=== PATIENT | female | born 1965 | race Two or more races ===

== ENCOUNTER 2019-01-15 14:27 | Inpatient (IN) | payer OTHER ==
[~2019-01-15] VITALS: Ht 157.5 cm; Wt 93.0 kg
[~2019-01-15 14:27] MED LIST: ACETAMINOPHEN325 M1 ORAL; ACTOS15 MG ORAL; ALEVE220 M2 PO; AMLODIPINE BES2.5 MG ORAL; ASPIR-LOW81 MG ORAL; ATORVASTATIN CA40 MG ORAL; BAYER ADVANCED500 MG ORAL; CELEBREX100 MG ORAL; CLEOCIN150 MG ORAL; DICLOFENAC SODI75 MG ORAL; DIPHENHYDRAMINE25 M1 ORAL; DOC-Q-LACE100 M1 ORAL; FLOVENT2 PUFFS INH; GABAPENTIN100 MG ORAL; GEMFIBROZIL600 MG ORAL; GLUCOPHAGE500 MG ORAL; GLYBURIDE-METF1 EAC1 PO; IMDUR30 MG ORAL; ISOSORBIDE DINIT5 MG ORAL; JANUVIA25 MG ORAL; LISINOPRIL20 MG ORAL; LORATADINE10 M2 PO; LOSARTAN POTASS25 MG ORAL; LOSARTAN-HCTZ1 EAC1 ORAL; METOCLOPRA10 MG/10 M PO; METOPROLOL TART25 MG ORAL; METOPROLOL TART50 MG ORAL; NEURONTIN300 MG ORAL; NORCO 5-325 TA1 EACH ORAL; NORVASC10 MG ORAL; NOVOLIN R100 UNIT/1 SUBQ; PANTOPRAZOLE SO40 MG ORAL; RANEXA500 MG ORAL; TRIAMCINOLONE A15 G1 TP; XARELTO10 MG ORAL; [UNRECOGNIZED DRUG - CODE] PO
[2019-01-15 14:41] VITALS: BP 90/49
--- NOTE | 2019-01-15 14:41 | NUR ---
ED Nurse Note: Pt from home came in due to headache since this morning. Pt also c/o generalized body pain. denies injury/trauma. Denies CP states she feels dizzy. Pt is AAO x4, ambulatory with non labored breathing.
[2019-01-15] MEDS ORDERED: DiphenhydrAMINE 50mg/ml Inj IVP ONE (14:45)
--- NOTE | 2019-01-15 15:09 | Emergency Room Report ---
History of Present Illness General Chief Complaint: Pain Source: Patient Present Illness HPI Patient states that she woke up early this morning around 3 AM with all over body pain. She states she has had some diarrhea yesterday. She states that her whole body hurts. She states her body hurts from head to toe. She has a history of diabetes, hypertension, hyperlipidemia, coronary artery disease, leukemia. She is currently taking oral therapy for her leukemia. She denies fever or chills. She does have sore throat for the past couple weeks. She denies abdominal pain or chest pain. She denies shortness of breath. She denies cough. She has no other complaints. Allergies: Coded Allergies: PENICILLIN G (Unverified Allergy, Unknown, 11/08/17) PENICILLINS (Verified Allergy, Unknown, 11/08/17) Patient History Past Medical History: see triage record, DM, HTN, AK, CAD, CHF, GERD, other - Leukemia, HLP Past Surgical History: CABG Social History: Denies: smoking, alcohol use, drug use Now: No Reviewed Nursing Documentation: PMH: Agreed; PSxH: Agreed Nursing Documentation-PMH Past Medical History: No History, Except For Hx Hypertension: Yes Hx Diabetes: Yes Review of Systems All Other Systems: negative except mentioned in HPI Physical Exam Vital Signs Date Time Temp Pulse Resp B/P (MAP) Pulse Ox O2 Delivery O2 Flow Rate FiO2 01/15/19 14:31 98.8 55 20 111/59 98 Room Air Sp02 EP Interpretation: reviewed, normal General Appearance: no apparent distress, alert, GCS 15, non-toxic, obese Head: normocephalic, atraumatic Eyes: bilateral eye normal inspection, bilateral eye PERRL ENT: hearing grossly normal, normal pharynx, no angioedema, normal voice Neck: full range of motion, supple/symm/no masses Respiratory: chest non-tender, lungs clear, normal breath sounds, no respiratory distress, no retraction, no accessory muscle use, speaking full sentences Cardiovascular #1: regular rate, rhythm, no edema Gastrointestinal: normal bowel sounds, non tender, soft, non-distended, no guarding, no rebound Rectal: deferred Musculoskeletal: back normal, normal range of motion, non-tender Neurologic: alert, oriented x3, responsive, motor strength/tone normal, sensory intact, speech normal Psychiatric: judgement/insight normal, memory normal, mood/affect normal, no suicidal/homicidal ideation Skin: normal color, no rash, warm/dry, well hydrated Medical Decision Making Diagnostic Impression: Primary Impression: ARF (acute renal failure) Additional Impression: Pyelonephritis ER Course The patient is found to have acute renal failure and UTI. The patient's creatinine is 3.8 be when is 99. This is significantly changed from the patient 's baseline. I'm unsure of the etiology. Possibly this patient developed a viral syndrome and has had poor oral intake over the past week. Patient is also on many different medications and this could be a medication side effect. This patient was given IV fluids and broad-spectrum antibiotics. Regardless, the patient has new acute renal failure will be admitted for further evaluation and treatment by nephrology. Laboratory Tests Test 01/15/19 15:10 01/15/19 15:57 White Blood Count 10.9 K/UL (4.8-10.8) H Red Blood Count 4.79 M/UL (4.20-5.40) Hemoglobin 12.9 G/DL (12.0-16.0) Hematocrit 37.5 % (37.0-47.0) Mean Corpuscular Volume 78 FL (80-99) L Mean Corpuscular Hemoglobin 26.9 PG (27.0-31.0) L Mean Corpuscular Hemoglobin Concent 34.3 G/DL (32.0-36.0) Red Cell Distribution Width 12.7 % (11.6-14.8) Platelet Count 232 K/UL (150-450) Mean Platelet Volume 6.4 FL (6.5-10.1) L Neutrophils (%) (Auto) 67.0 % (45.0-75.0) Lymphocytes (%) (Auto) 21.4 % (20.0-45.0) Monocytes (%) (Auto) 6.7 % (1.0-10.0) Eosinophils (%) (Auto) 4.3 % (0.0-3.0) H Basophils (%) (Auto) 0.7 % (0.0-2.0) Prothrombin Time 12.5 SEC (9.30-11.50) H Prothrombin Time INR 1.2 (0.9-1.1) H PTT 42 SEC (23-33) H Sodium Level 137 MMOL/L (136-145) Potassium Level 3.0 MMOL/L (3.5-5.1) L Chloride Level 94 MMOL/L (98-107) L Carbon Dioxide Level 27 MMOL/L (21-32) Anion Gap 16 mmol/L (5-15) H Blood Urea Nitrogen 99 mg/dL (7-18) H Creatinine 3.8 MG/DL (0.55-1.30) H Estimate Glomerular Filtration Rate 12.4 mL/min (>60) Glucose Level 120 MG/DL (74-106) H Calcium Level 9.9 MG/DL (8.5-10.1) Total Bilirubin 0.2 MG/DL (0.2-1.0) Aspartate Amino Transferase (AST) 25 U/L (15-37) Alanine Aminotransferase (ALT) 23 U/L (12-78) Alkaline Phosphatase 86 U/L (46-116) Total Creatine Kinase 487 U/L (26-308) H Total Protein 8.9 G/DL (6.4-8.2) H Albumin 3.9 G/DL (3.4-5.0) Globulin 5.0 g/dL Albumin/Globulin Ratio 0.8 (1.0-2.7) L Triglycerides Level 242 MG/DL (30-150) H Cholesterol Level 180 MG/DL (< 200) LDL Cholesterol 91 mg/dL (<100) HDL Cholesterol 45 MG/DL (40-60) Cholesterol/HDL Ratio 4.0 (3.3-4.4) Urine Color Pending Urine Appearance Pending Urine pH Pending Urine Specific Jackson Pending Urine Protein Pending Urine Glucose (UA) Pending Urine Ketones Pending Urine Blood Pending Urine Nitrite Pending Urine Bilirubin Pending Urine Urobilinogen Pending Urine Leukocyte Esterase Pending EKG Diagnostic Results Rate: bradycardiac Rhythm: other - S.bradycardia ST Segments: no acute changes Other Impression intraventricular block Rhythm Strip Diag. Results EP Interpretation: yes Rate: 50's CT/MRI/US Diagnostic Results CT/MRI/US Diagnostic Results : Imaging Test Ordered: CT head Impression No acute findings. Specifically no intracranial bleed, mass effect or edema. See official report. Last Vital Signs Date Time Temp Pulse Resp B/P (MAP) Pulse Ox O2 Delivery O2 Flow Rate FiO2 01/15/19 14:31 98.8 55 20 111/59 98 Room Air Status: improved Disposition: XFER SHT-TRM HOSP Condition: Serious Mely Mitchell DO Jan 15, 2019 15:09
--- NOTE | 2019-01-15 15:13 | NUR ---
ED Nurse Note: Patient taken to CT.
--- NOTE | 2019-01-15 15:18 | NUR ---
ED Nurse Note: Patient is back from CT.
[2019-01-15 15:41] LABS: BASOPHILS % (AUTO) 0.7 % (0.0-2.0); EOSINOPHILS % (AUTO) 4.3 % (0.0-3.0); HEMATOCRIT 37.5 % (37.0-47.0); HEMOGLOBIN 12.9 G/DL (12.0-16.0); LYMPHOCYTES % (AUTO) 21.4 % (20.0-45.0); MEAN CORPUSCULAR VOLUME 78 FL (80-99); MONOCYTES % (AUTO) 6.7 % (1.0-10.0); PLATELET COUNT 232 K/UL (150-450); RED BLOOD COUNT 4.79 M/UL (4.20-5.40); RED CELL DISTRIBUTION WIDTH 12.7 % (11.6-14.8); WHITE BLOOD COUNT 10.9 K/UL (4.8-10.8)
--- NOTE | 2019-01-15 15:43 | Diagnostic Imaging Report ---
Indication: Headache Technique: Contiguous 5 mm thick transaxial imaging of the head obtained in a Siemens Sensation [address] scanner. Soft tissue and bone windows generated. Automatic Exposure Control was utilized. Total Dose length Product (DLP): 1319.[address] Dose Index Volume (CTDIvol): 70.38 mGy Comparison: none Findings: There is a cystic encephalomalacia involving the occipital lobes bilaterally consistent with old infarcts. There is a small cystic focus in the superior right cerebellum consistent with an old infarct measuring about 1.5 x 0.8 cm. Suggestion of one or 2 additional tiny cystic foci within the left cerebellum also noted. Mild atrophy of the brain demonstrated within the cerebrum and cerebellum. The basal cisterns are mildly prominent. There is no mass effect or edema or evidence of acute intracranial hemorrhage. Osseous structures appear normal. Paranasal sinuses and mastoid air cells appear clear. 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 Mild generalized atrophy of the brain The CT scanner at [facility] is accredited by the [employer] and the scans are performed using dose optimization techniques as appropriate to a performed exam including Automatic Exposure control.
[2019-01-15 15:54] LABS: ANION GAP 16 mmol/L (5-15); BLOOD UREA NITROGEN 99 mg/dL (7-18); CALCIUM 9.9 MG/DL (8.5-10.1); CARBON DIOXIDE 27 MMOL/L (21-32); CHLORIDE 94 MMOL/L (98-107); CREATININE 3.8 MG/DL (0.55-1.30); SODIUM 137 MMOL/L (136-145)
[2019-01-15 15:56] LABS: INR 1.2 (0.9-1.1)
[2019-01-15 15:59] LABS: ALANINE AMINOTRANSFERASE 23 U/L (12-78); ALBUMIN 3.9 G/DL (3.4-5.0); ALBUMIN/GLOBULIN RATIO 0.8 (1.0-2.7); ALKALINE PHOSPHATASE 86 U/L (46-116); ASPARTATE AMINO TRANSFERASE 25 U/L (15-37); BILIRUBIN,TOTAL 0.2 MG/DL (0.2-1.0); CHOLESTEROL 180 MG/DL (< 200); CREATINE KINASE 487 U/L (26-308); HDL CHOLESTEROL 45 MG/DL (40-60); TRIGLYCERIDES 242 MG/DL (30-150)
--- NOTE | 2019-01-15 16:04 | NUR ---
ED Nurse Note: Collected urine and sent.
[2019-01-15 16:45] VITALS: BP 101/65
--- NOTE | 2019-01-15 16:48 | NUR ---
ED Nurse Note: Medications surrendered to pharmacy. # [id number] and # [id number]
[2019-01-15 16:53] LABS: APPEARANCE,URINE CLOUDY; BILIRUBIN, URINE NEGATIVE (NEGATIVE); GLUCOSE, URINE (UA) NEGATIVE (NEGATIVE); KETONES,URINE NEGATIVE (NEGATIVE); LEUKOCYTE ESTERASE ,URINE 3+ (NEGATIVE); NITRITE,URINE NEGATIVE (NEGATIVE); PH,URINE 5 (4.5-8.0); PROTEIN,URINE 2+ (NEGATIVE); UROBILINOGEN,URINE NORMAL MG/DL (0.0-1.0)
[2019-01-15 16:54] LABS: COLOR,URINE YELLOW
[2019-01-15] MEDS ORDERED: cefTRIAXone 1 GM in NS 55 ML IVPB ONE (17:15)
[2019-01-15] MEDS ORDERED: UNOBMED (18:45)
--- NOTE | 2019-01-15 18:49 | NUR ---
ED Nurse Note: Medications taken from pharmacy and given back to patient. Pt is for transfer to [facility].
[2019-01-15 18:52] VITALS: BP 95/62
--- NOTE | 2019-01-15 19:09 | NUR ---
HAND-OFF: Report given to Charlette AMADOR.
[2019-01-15] MEDS ORDERED: Miralax 17gm pkt ORAL PRN (20:45)
[2019-01-15] MEDS ORDERED: LORazepam Inj 2mg/ml 1ml IV PRN (20:46)
[2019-01-15] MEDS ORDERED: Mylanta II UD 30ml ORAL PRN (20:48)
[2019-01-15] MEDS ORDERED: Morphine Sulfate 2mg/ml Inj(IV/IM USE ONLY) IVP PRN (20:48)
[2019-01-15] MEDS ORDERED: Zolpidem 5mg tab ORAL PRN (21:00)
--- NOTE | 2019-01-15 21:15 | NUR ---
ED Nurse Note: Patient's BP is 82/40. ERMD aware
--- NOTE | 2019-01-15 21:30 | NUR ---
ED Nurse Note: patient was admited to [facility]. BP is 82/42, HR is 52 ERMD aware. AAO x4. All belongings were given to the patient. Patient was transfered by ACLS protocol.
[2019-01-15 21:35] VITALS: BP 89/38
[2019-01-15 21:58] LABS: ALANINE AMINOTRANSFERASE 19 U/L (12-78); ALBUMIN/GLOBULIN RATIO 0.9 (1.0-2.7); ALKALINE PHOSPHATASE 64 U/L (46-116); ANION GAP 13 mmol/L (5-15); ASPARTATE AMINO TRANSFERASE 20 U/L (15-37); BILIRUBIN,TOTAL 0.1 MG/DL (0.2-1.0); BLOOD UREA NITROGEN 87 mg/dL (7-18); CALCIUM 7.8 MG/DL (8.5-10.1); CARBON DIOXIDE 25 MMOL/L (21-32); CHLORIDE 103 MMOL/L (98-107); CREATINE KINASE 437 U/L (26-308); CREATININE 2.9 MG/DL (0.55-1.30); SODIUM 141 MMOL/L (136-145)
[2019-01-15] MEDS: Heparin 5000 units/ml inj SUBQ SCH (22:00)
--- NOTE | 2019-01-15 22:00 | NUR ---
NURSE NOTES: ADMITTED 53 YEAR OLD FEMALE TO ROOM 406 BED 1 VIA GURNEY FROM EMERGENCY DEPARTMENT WITH ADMITTING DIAGNOSIS ACUTE RENAL FAILURE UNDER THE CARE OF DR. MCDONALD. PATIENT ALERT/ORIENTED X4, ABLE TO VERBALIZE NEEDS, PATIENT WITH COMPLAINTS OF GENERALIZED PAIN. NO SIGNS AND SYMPTOMS OF ACUTE CARDIO RESPIRATORY DISTRESS/SHORTNESS OF BREATH, DENIES CHEST PAIN, NO EDEMA NOTED. CONTINENT OF BOWEL/BLADDER, ABDOMEN ROUND/SOFT/NON TENDER, BOWEL SOUNDS AUDIBLE, NO REPORT OF GI DISTRESS, NO NAUSEA/VOMITING/DIARRHEA. NO REPORT OF DIFFICULTY VOIDING, BEDSIDE COMMODE AVAILABLE. SIDE RAILS UP X3/BED IN LOWEST POSITION FOR SAFETY. ORIENTATED PATIENT TO ROOM/ENVIRONMENT, ENCOURAGED PATIENT TO UTILIZE CALL LIGHT FOR ASSISTANCE, VERBALIZED UNDERSTANDING. NAD.
[2019-01-15 22:07] LABS: POTASSIUM 2.6 MMOL/L (3.5-5.1)
[2019-01-15 22:09] VITALS: BP 82/40
[2019-01-15] MEDS ORDERED: AZTREONAM IVPB SCH (23:00)
[2019-01-15] MEDS ORDERED: NS IVPB SCH (23:00)
[2019-01-15] MEDS ORDERED: SPRYCEL100 MG PO (23:13)
[2019-01-15] MEDS ORDERED: Vancomycin 1.25gm Premix IVPB ONE (23:30)
[2019-01-16] VITALS: BP 129/54
[2019-01-16 04:00] VITALS: BP 126/48
--- NOTE | 2019-01-16 06:29 | NUR ---
NURSE NOTES: RESTED WELL, NO SIGNIFICANT CHANGE OF CONDITION NOTED THROUGHOUT THE NIGHT. SAFETY MAINTAINED. NAD.
[2019-01-16 07:01] LABS: BASOPHILS % (AUTO) 0.6 % (0.0-2.0); EOSINOPHILS % (AUTO) 6.6 % (0.0-3.0); HEMATOCRIT 38.5 % (37.0-47.0); LYMPHOCYTES % (AUTO) 23.8 % (20.0-45.0); MEAN CORPUSCULAR VOLUME 80 FL (80-99); NEUTROPHILS % (AUTO) 64.1 % (45.0-75.0); PLATELET COUNT 230 K/UL (150-450); RED BLOOD COUNT 4.82 M/UL (4.20-5.40); RED CELL DISTRIBUTION WIDTH 13.4 % (11.6-14.8); WHITE BLOOD COUNT 6.9 K/UL (4.8-10.8)
--- NOTE | 2019-01-16 07:30 | NUR ---
NURSE NOTES: Report receied from Aida. Pt is resting in bed in stable condition. Pt is awake, alert, and oriented x4. able to verbalize needs. Pt is on room air and breathing is even and unlabored. No acute resp distress noted. BSC @ bedside. IV access patent and intact. Bed is in lowest position and bed alarm is activated. side rails up x3, Call light is within reach. Will continue to monitor.
[2019-01-16 07:47] LABS: ALANINE AMINOTRANSFERASE 19 U/L (12-78); ALBUMIN 3.2 G/DL (3.4-5.0); ALBUMIN/GLOBULIN RATIO 0.7 (1.0-2.7); ALKALINE PHOSPHATASE 92 U/L (46-116); ANION GAP 17 mmol/L (5-15); ASPARTATE AMINO TRANSFERASE 32 U/L (15-37); BILIRUBIN,TOTAL 0.2 MG/DL (0.2-1.0); BLOOD UREA NITROGEN 81 mg/dL (7-18); CALCIUM 8.5 MG/DL (8.5-10.1); CARBON DIOXIDE 21 MMOL/L (21-32); CHLORIDE 98 MMOL/L (98-107); CHOLESTEROL 170 MG/DL (< 200); CREATININE 2.4 MG/DL (0.55-1.30); HDL CHOLESTEROL 38 MG/DL (40-60); POTASSIUM 3.3 MMOL/L (3.5-5.1); SODIUM 136 MMOL/L (136-145); TRIGLYCERIDES 320 MG/DL (30-150)
[2019-01-16 08:00] VITALS: BP 126/63
[2019-01-16] MEDS: Heparin 5000 units/ml inj SUBQ SCH ×2 (08:28→21:33)
--- NOTE | 2019-01-16 08:48 | NUR ---
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 Mild generalized atrophy of the brain. IS:NS IV x1L COMPAZINE 10mg IVP K-DUR 10meq CEFTRIAXONE 55ml IVPB ADMITTED TO MED/SURG DC PLAN: RETURN TO HOME
[2019-01-16] MEDS: NS IVPB SCH ×2 (09:46→20:16)
[2019-01-16] MEDS: AZTREONAM IVPB SCH ×2 (09:46→20:16)
--- NOTE | 2019-01-16 10:27 | NUR ---
P.T Note: P.T evaluation completed. Pt currently is baseline independent in all aspects of ADL/functional mobilities and gait/locomotion. Skilled P.T service is not recommended at this time. Educated patient the importance of OOB activities during hospitalization to prevent occurrence of deconditioning effect from prolonged bedrest. Pt verbalized understanding. Pt D/C'd from P.T services.
[2019-01-16 11:56] VITALS: BP 120/61
--- NOTE | 2019-01-16 15:17 | Consultation ---
History of Present Illness General Date patient seen: Jan 16, 2019 Chief Complaint: Pain Reason for Consultation: inpatient management Present Illness HPI 53 year old female with hx of DM, HTN, MA, CAD, CHF, GERD, presented to ER with CC of all over body pain, some diarrhea yesterday. She is currently taking oral therapy for her leukemia. She denies fever or chills. She does have sore throat for the past couple weeks. She denies shortness of breath. She denies cough. She was found to be in renal failure and admitted for further management. Allergies: Coded Allergies: PENICILLIN G (Unverified Allergy, Unknown, 11/08/17) PENICILLINS (Verified Allergy, Unknown, 11/08/17) Medication History Scheduled Acetaminophen* (Acetaminophen 325MG Tablet*), 500 MG ORAL Q6HR, (Reported) Amlodipine Besylate (Norvasc), 10 MG ORAL DAILY Aspirin* (Aspir-Low*), 81 MG ORAL DAILY, (Reported) Atorvastatin Calcium* (Atorvastatin Calcium*), 40 MG ORAL BEDTIME, (Reported) Calcium Carbonate ([id number]), 500 MG PO DAILY, (Reported) Celecoxib* (Celebrex*), Unknown Dose ORAL TWICE A DAY, (Reported) Clindamycin HCl (Clindamycin HCl), 300 MG ORAL EVERY 6 HOURS Dasatinib (Sprycel), 100 MG PO DAILY, (Reported) Diclofenac Sod* (Voltaren*), 75 MG ORAL THREE TIMES A DAY, (Reported) Docusate Sodium (Doc-Q-Lace), 100 MG ORAL BID, (Reported) Fluticasone Propionate (Flovent Hfa), 2 PUFFS INH TWICE A DAY, (Reported) Gabapentin (Neurontin), 300 MG ORAL TID@09,15,21 Gemfibrozil (Gemfibrozil*), 600 MG ORAL BID, (Reported) Glyburide/Metformin Hcl (Glyburide-Metformin 5-500 Mg), 2 EACH PO DAILY, ( Reported) Insulin Regular, Human* (Novolin R*), Unknown Dose SUBQ .SLIDING SCALE, ( Reported) Isosorbide Mononitrate* (Imdur*), 30 MG ORAL DAILY, (Reported) Lisinopril (Lisinopril*), 20 MG ORAL DAILY, (Reported) Loratadine (Loratadine), 10 MG PO DAILY, (Reported) Losartan Potassium* (Losartan Potassium*), Unknown Dose ORAL DAILY, (Reported) Losartan/Hydrochlorothiazide (Losartan-Hctz 100-25 Mg Tab), 1 TAB ORAL DAILY, ( Reported) Metformin Hcl* (Glucophage*), Unknown Dose ORAL DAILY, (Reported) Metoclopramide Hcl* (Metoclopramide Hcl*), 10 MG PO TID, (Reported) Metoprolol Tartrate* (Metoprolol Tartrate*), 50 MG ORAL BID, (Reported) Metoprolol Tartrate* (Metoprolol Tartrate*), Unknown Dose ORAL EVERY 12 HOURS, ( Reported) Pantoprazole* (Pantoprazole*), 40 MG ORAL DAILY, (Reported) Pioglitazone Hcl* (Actos*), 15 MG ORAL DAILY, (Reported) Ranolazine* (Ranexa*), 500 MG ORAL EVERY 12 HOURS, (Reported) Rivaroxaban (Xarelto*), 20 MG ORAL DAILY, (Reported) Sitagliptin* (Januvia*), Unknown Dose ORAL DAILY, (Reported) Sitagliptin* (Januvia*), 25 MG ORAL DAILY, (Reported) Sitagliptin* (Januvia*), 25 MG ORAL DAILY, (Reported) Scheduled PRN Diphenhydramine Hcl* (Diphenhydramine Hcl*), 25 MG ORAL Q6H PRN for Itching, ( Reported) Hydrocodone Bit/Acetaminophen 5-325* (Keller 5-325*), 1 TAB ORAL Q6H PRN for For Pain Miscellaneous Medications Aspirin (Rajan Advanced), 200 MG ORAL, (Reported) Isosorbide Dinitrate (Isosorbide Dinitrate*), Unknown Dose ORAL, (Reported) Naproxen Sodium (Aleve), 220 MG PO, (Reported) Triamcinolone Acetonide (Triamcinolone Acetonide), 15 GM TP, (Reported) Unable to Obtain Medications (Unable To Obtain Meds), (Reported) Patient History Healthcare decision maker ROSEMARIE BARCLAY LETICIA GUADALUPE Resuscitation status Full Code Advanced Directive on File No Past Medical/Surgical History Past Medical/Surgical History: (1) Diabetes mellitus (2) Accelerated hypertension Review of Systems All Other Systems: negative except mentioned in HPI Physical Exam General Appearance: WD/WN, no apparent distress Lines, tubes and drains: peripheral HEENT: normocephalic, atraumatic Neck: non-tender, normal alignment Respiratory/Chest: chest wall non-tender, lungs clear Cardiovascular/Chest: normal peripheral pulses, normal rate Abdomen: normal bowel sounds, non tender, hyperactive bowel sounds Genitourinary/Rectal: normal genital exam Extremities: normal range of motion 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 Lymphatic: anterior cervical Last 24 Hour Vital Signs Date Time Temp Pulse Resp B/P (MAP) Pulse Ox O2 Delivery O2 Flow Rate FiO2 01/16/19 11:56 98.5 60 20 120/61 (80) 99 01/16/19 09:00 Room Air 01/16/19 08:00 97.7 60 20 126/63 (84) 98 01/16/19 04:00 97.7 52 17 126/48 (74) 98 01/16/19 00:00 97.3 54 18 129/54 (79) 100 01/15/19 22:09 98.7 65 20 82/40 100 Room Air 01/15/19 22:09 98.7 52 20 80/40 98 Room Air 01/15/19 22:00 Room Air 01/15/19 21:35 99.6 52 18 89/38 (55) 98 01/15/19 18:52 98.7 65 20 95/62 100 Room Air 01/15/19 16:45 98.5 60 17 101/65 100 Room Air Intake and Output 01/15/19 01/16/19 18:59 06:59 Intake Total 2055 ml 685.000 ml Balance 2055 ml 685.000 ml Intake Oral 360 ml IV Total 2055 ml 325.000 ml # Voids 1 3 # Bowel Movements 1 Laboratory Tests Test 01/15/19 15:10 01/15/19 15:57 01/15/19 21:26 01/16/19 05:46 White Blood Count 10.9 K/UL (4.8-10.8) H 6.9 K/UL (4.8-10.8) Red Blood Count 4.79 M/UL (4.20-5.40) 4.82 M/UL (4.20-5.40) Hemoglobin 12.9 G/DL (12.0-16.0) 13.0 G/DL (12.0-16.0) Hematocrit 37.5 % (37.0-47.0) 38.5 % (37.0-47.0) Mean Corpuscular Volume 78 FL (80-99) L 80 FL (80-99) Mean Corpuscular Hemoglobin 26.9 PG (27.0-31.0) L 26.9 PG (27.0-31.0) L Mean Corpuscular Hemoglobin Concent 34.3 G/DL (32.0-36.0) 33.8 G/DL (32.0-36.0) Red Cell Distribution Width 12.7 % (11.6-14.8) 13.4 % (11.6-14.8) Platelet Count 232 K/UL (150-450) 230 K/UL (150-450) Mean Platelet Volume 6.4 FL (6.5-10.1) L 6.4 FL (6.5-10.1) L Neutrophils (%) (Auto) 67.0 % (45.0-75.0) 64.1 % (45.0-75.0) Lymphocytes (%) (Auto) 21.4 % (20.0-45.0) 23.8 % (20.0-45.0) Monocytes (%) (Auto) 6.7 % (1.0-10.0) 5.0 % (1.0-10.0) Eosinophils (%) (Auto) 4.3 % (0.0-3.0) H 6.6 % (0.0-3.0) H Basophils (%) (Auto) 0.7 % (0.0-2.0) 0.6 % (0.0-2.0) Prothrombin Time 12.5 SEC (9.30-11.50) H Prothromb Time International Ratio 1.2 (0.9-1.1) H Activated Partial Thromboplast Time 42 SEC (23-33) H Sodium Level 137 MMOL/L (136-145) 141 MMOL/L (136-145) 136 MMOL/L (136-145) Potassium Level 3.0 MMOL/L (3.5-5.1) L 2.6 MMOL/L (3.5-5.1) *L 3.3 MMOL/L (3.5-5.1) L Chloride Level 94 MMOL/L (98-107) L 103 MMOL/L (98-107) 98 MMOL/L (98-107) Carbon Dioxide Level 27 MMOL/L (21-32) 25 MMOL/L (21-32) 21 MMOL/L (21-32) Anion Gap 16 mmol/L (5-15) H 13 mmol/L (5-15) 17 mmol/L (5-15) H Blood Urea Nitrogen 99 mg/dL (7-18) H 87 mg/dL (7-18) H 81 mg/dL (7-18) H Creatinine 3.8 MG/DL (0.55-1.30) H 2.9 MG/DL (0.55-1.30) H 2.4 MG/DL (0.55-1.30) H Estimat Glomerular Filtration Rate 12.4 mL/min (>60) 16.9 mL/min (>60) 21.1 mL/min (>60) Glucose Level 120 MG/DL (74-106) H 60 MG/DL (74-106) L 268 MG/DL (74-106) #H Calcium Level 9.9 MG/DL (8.5-10.1) 7.8 MG/DL (8.5-10.1) #L 8.5 MG/DL (8.5-10.1) Total Bilirubin 0.2 MG/DL (0.2-1.0) 0.1 MG/DL (0.2-1.0) L 0.2 MG/DL (0.2-1.0) Aspartate Amino Transf (AST/SGOT) 25 U/L (15-37) 20 U/L (15-37) 32 U/L (15-37) Alanine Aminotransferase (ALT/SGPT) 23 U/L (12-78) 19 U/L (12-78) 19 U/L (12-78) Alkaline Phosphatase 86 U/L (46-116) 64 U/L (46-116) 92 U/L (46-116) Total Creatine Kinase 487 U/L (26-308) H 437 U/L (26-308) H Total Protein 8.9 G/DL (6.4-8.2) H 6.4 G/DL (6.4-8.2) 7.9 G/DL (6.4-8.2) Albumin 3.9 G/DL (3.4-5.0) 3.0 G/DL (3.4-5.0) L 3.2 G/DL (3.4-5.0) L Globulin 5.0 g/dL 3.4 g/dL 4.7 g/dL Albumin/Globulin Ratio 0.8 (1.0-2.7) L 0.9 (1.0-2.7) L 0.7 (1.0-2.7) L Triglycerides Level 242 MG/DL (30-150) H 320 MG/DL (30-150) H Cholesterol Level 180 MG/DL (< 200) 170 MG/DL (< 200) LDL Cholesterol 91 mg/dL (<100) 87 mg/dL (<100) HDL Cholesterol 45 MG/DL (40-60) 38 MG/DL (40-60) L Cholesterol/HDL Ratio 4.0 (3.3-4.4) 4.5 (3.3-4.4) H Thyroid Stimulating Hormone (TSH) 2.795 uiU/mL (0.358-3.740) 4.589 uiU/mL (0.358-3.740) Free Thyroxine 0.83 NG/DL (0.76-1.46) Free Triiodothyronine 1.3 pg/mL (2.3-4.2) L Urine Color Yellow Urine Appearance Cloudy Urine pH 5 (4.5-8.0) Urine Specific Raymond 1.015 (1.005-1.035) Urine Protein 2+ (NEGATIVE) H Urine Glucose (UA) Negative (NEGATIVE) Urine Ketones Negative (NEGATIVE) Urine Blood 5+ (NEGATIVE) H Urine Nitrite Negative (NEGATIVE) Urine Bilirubin Negative (NEGATIVE) Urine Urobilinogen Normal MG/DL (0.0-1.0) Urine Leukocyte Esterase 3+ (NEGATIVE) H Urine RBC 15-20 /HPF (0 - 2) H Urine WBC Tntc /HPF (0 - 2) H Urine Squamous Epithelial Cells Moderate /LPF (NONE/OCC) H Urine Bacteria Few /HPF (NONE) Uric Acid 10.5 MG/DL (2.6-7.2) H Phosphorus Level 3.0 MG/DL (2.5-4.9) Magnesium Level 2.0 MG/DL (1.8-2.4) Hemoglobin A1c 14.2 % (4.3-6.0) H Microbiology Date/Time Source Procedure Growth Status 01/15/19 15:57 Urine,Clean Catch Urine Culture - Preliminary Gram Negative Bacillus 1 Resulted Height (Feet): 5 Height (Inches): 2.00 Weight (Pounds): 205 Medications Current Medications Medications (Trade) Dose Ordered Sig/Ruiz Route PRN Reason Start Time Stop Time Status Last Admin Dose Admin Acetaminophen (Tylenol) 650 mg Q4H PRN ORAL Mild Pain/Temp > 100.5 01/16/19 14:36 02/14/19 14:35 Aztreonam 0.5 gm/ Sodium Chloride 50 ml @ 100 mls/hr Q8H IVPB 01/16/19 10:00 01/23/19 09:59 01/16/19 09:46 Clonidine HCl (Catapres Tab) 0.1 mg Q4H PRN ORAL For High Blood Pressure >160 01/15/19 20:58 02/14/19 20:57 Dextrose (Dextrose 50%) STAT PRN IV Hypoglycemia 01/16/19 15:15 02/15/19 15:14 UNV Dextrose (Dextrose 50%) 25 ml Q30M PRN IV Hypoglycemia 01/16/19 13:45 02/15/19 13:44 Dextrose (Dextrose 50%) 50 ml Q30M PRN IV Hypoglycemia 01/16/19 13:45 02/15/19 13:44 Heparin Sodium (Porcine) (Heparin 5000 units/ml) 5,000 units EVERY 12 HOURS SUBQ 01/15/19 21:00 02/14/19 20:59 01/16/19 08:28 Insulin Aspart (NovoLOG) AC+HS SUBQ 01/16/19 16:30 02/15/19 16:29 Insulin Aspart (NovoLOG) BEFORE MEALS AND HS SUBQ 01/16/19 16:30 02/15/19 16:29 UNV Ondansetron HCl (Zofran) 4 mg Q6H PRN IVP Nausea & Vomiting 01/15/19 20:46 02/14/19 20:45 Polyethylene Glycol (Miralax) 17 gm HSPRN PRN ORAL Constipation 01/15/19 20:45 02/14/19 20:44 Vancomycin HCl (Vanco rx to dose) 1 ea DAILY PRN MISC Per rx protocol 01/15/19 20:45 02/14/19 20:44 Zolpidem Tartrate (Ambien) 5 mg HSPRN PRN ORAL Insomnia 01/15/19 21:00 01/22/19 20:59 Assessment/Plan Problem List: (1) Pyelonephritis ICD Codes: N12 - Tubulo-interstitial nephritis, not specified as acute or chronic SNOMED: 24253410 (2) ATN (acute tubular necrosis) ICD Codes: N17.0 - Acute kidney failure with tubular necrosis SNOMED: 00295411 (3) Diabetes mellitus ICD Codes: E11.9 - Type 2 diabetes mellitus without complications SNOMED: 54037001 (4) Penicillin allergy ICD Codes: Z88.0 - Allergy status to penicillin SNOMED: 47937877 Assessment/Plan iv fluids iv abx sliding scale diabetic diet renal US urine electrolytes dvt prophylaxis. Laurie Izquierdo MD Jan 16, 2019 15:17
[2019-01-16 16:00] VITALS: BP 122/64
[2019-01-16] MEDS: NovoLOG Insulin Flexpen SUBQ SCH ×2 (16:30→21:31)
[2019-01-16] MEDS ORDERED: NovoLOG Insulin Flexpen SUBQ SCH (16:30)
[2019-01-16 16:36] LABS: CREATINE KINASE 460 U/L (26-308)
--- NOTE | 2019-01-16 17:13 | NUR ---
NURSE NOTES: Kcl 40 meq given po per MD order. K+3.3 today's lab.
--- NOTE | 2019-01-16 19:05 | History & Physical ---
History and Physical History & Physicial Dictated for Int Med-Dr Woods no. [id number]. Max Vivar MD Jan 16, 2019 19:05
--- NOTE | 2019-01-16 19:07 | NUR ---
HAND-OFF: Report given to Ellen.
--- NOTE | 2019-01-16 19:30 | NUR ---
NURSE NOTES: RECEIVED PATIENT LYING IN BED, AWAKE, ALERT/ORIENTED X3, HEAD OF BED ELEVATED TO FACILITATE BREATHING , NO SIGNS AND SYMPTOMS OF ACUTE CARDIO RESPIRATORY DISTRESS/SHORTNESS OF BREATH, DENIES CHEST PAIN, BILATERAL LOWER EXTREMITIES ELEVATED ON PILLOW LENGTHWISE WITH HEELS FLOATING. NO REPORT OF GI DISCOMFORT, NO N/V/D. ASSISTED WITH COMFORT CARE. SIDE RAILS UP X3/BED IN LOWEST POSITION FOR SAFETY. ENCOURAGED PATIENT TO UTILIZE CALL LIGHT FOR ASSISTANCE, VERBALIZED UNDERSTANDING. NAD.
[2019-01-16 20:00] VITALS: BP 139/63
[2019-01-16 23:44] LABS: APPEARANCE,URINE CLEAR; BILIRUBIN, URINE NEGATIVE (NEGATIVE); COLOR,URINE PALE YELLOW; GLUCOSE, URINE (UA) 4+ (NEGATIVE); KETONES,URINE NEGATIVE (NEGATIVE); LEUKOCYTE ESTERASE ,URINE NEGATIVE (NEGATIVE); NITRITE,URINE NEGATIVE (NEGATIVE); PH,URINE 5 (4.5-8.0); PROTEIN,URINE 2+ (NEGATIVE); UROBILINOGEN,URINE NORMAL MG/DL (0.0-1.0)
[2019-01-17] VITALS: BP 127/62
--- NOTE | 2019-01-17 01:45 | History and Physical Report ---
DATE OF ADMISSION: 01/15/2019 CHIEF COMPLAINT: The patient is a 53-year-old female, who presents with chief complaint of shortness of breath. HISTORY OF PRESENT ILLNESS: Began on January 15, 2019. The patient has a history of coronary artery bypass graft. The patient states she began to experience shortness of breath. The patient also complained of generalized body aches. The patient became concerned because she has a history of coronary artery disease. The patient presented to [facility]. The patient was admitted with generalized myalgias and shortness of breath. REVIEW OF SYSTEMS: CONSTITUTIONAL: The patient denies weight loss or weight gain. The patient denies fever or chills. HEENT: The patient denies ear or throat pain. The patient denies headache. CARDIOVASCULAR: The patient denies palpitations or chest pain. CHEST: The patient complains of shortness of breath as above. The patient denies wheezes. ABDOMEN: The patient denies nausea, vomiting, diarrhea, or constipation. GENITOURINARY: The patient denies dysuria or increased frequency of urination. NEUROMUSCULAR: The patient complains of generalized myalgias as above. The patient denies seizures or generalized weakness. PAST MEDICAL HISTORY: Significant for: 1. Diabetes type 2. 2. Hypertension. 3. Chronic myelocytic leukemia. 4. History of coronary artery disease. PAST SURGICAL HISTORY: Significant for: 1. Coronary artery bypass graft in 2006. 2. section x2. CURRENT MEDICATIONS: 1. Amlodipine 10 mg p.o. daily. 2. Aspirin 81 mg p.o. daily. 3. Atorvastatin 40 mg p.o. nightly. 4. Celebrex 100 mg p.o. twice daily. 5. Sprycel 100 mg p.o. daily. 6. Flovent 110 mcg two puffs p.o. twice daily. 7. Gabapentin 300 mg p.o. three times daily. 8. Gemfibrozil 600 mg p.o. twice daily. 9. Glyburide/metformin 5/500 mg one tablet p.o. twice daily. 10. Regular insulin sliding scale. 11. Isosorbide dinitrate 5 mg p.o. daily. 12. Isosorbide mononitrate 30 mg p.o. daily. 13. Lisinopril 20 mg p.o. daily. 14. Losartan/hydrochlorothiazide 100/25 mg one tablet p.o. daily. 15. Metoprolol 50 mg p.o. twice daily. 16. Protonix 40 mg p.o. daily. 17. Actos 15 mg p.o. daily. 18. Ranexa 500 mg p.o. twice daily. 19. Xarelto 20 mg p.o. daily. 20. Januvia 25 mg p.o. daily. ALLERGIES: Penicillin. SOCIAL HISTORY: The patient is single and lives with her adult daughter. The patient denies tobacco or alcohol use. PHYSICAL EXAMINATION: VITAL SIGNS: Temperature 97.3, respirations 18, pulse 54, and blood pressure 129/54. GENERAL: The patient is a well-developed and well-nourished female, in no apparent distress. HEENT: Eyes, pupils are equal and responsive to light and accommodation. Extraocular movements are intact. NECK: Supple without lymphadenopathy. CHEST: Lungs are clear to auscultation bilaterally without wheezes or rales. CARDIOVASCULAR: Regular rhythm and rate. S1 and S2 normal without murmurs, rubs, or gallops. ABDOMEN: Soft, nontender, and nondistended. Positive bowel sounds. No evidence of hepatosplenomegaly. Currently, no rebound or guarding noted. EXTREMITIES: Negative for clubbing, cyanosis, or edema. RECTAL/GENITAL: Refused. NEUROLOGIC: Cranial nerves II through XII are grossly intact without focal deficits. Motor strength is 5/5 bilaterally. Deep tendon reflexes are 2+ plantar. LABORATORY STUDIES: WBC 10.9, hemoglobin 12.9, hematocrit 37.5, and platelets 232,000. Sodium 137, potassium 3.0, chloride 94, CO2 27, BUN 99, and creatinine 3.8. Glucose 120. CK elevated at 487. An EKG was performed, which demonstrates sinus bradycardia at approximately 55 beats per minute. There was an intraventricular block nonspecific. ASSESSMENT: This is a 53-year-old female with: 1. Shortness of breath. 2. Generalized myalgias. 3. Diabetes type 2. 4. Hypertension. 5. Coronary artery disease. 6. Chronic myelocytic leukemia. TREATMENT: 1. Shortness of breath/coronary artery disease. A Cardiology consultation has been obtained with Dr. Boo Gustafson. An echocardiogram is pending. Serial troponin levels will be performed. BNP is pending. We will follow recommendation of Cardiology. 2. Diabetes type 2. An Endocrinology consultation has been obtained with Dr. Coelho. 3. Hypertension. Continue antihypertensive medications as above. 4. Renal failure. A Nephrology consultation has been obtained with Dr. Baird. 5. Chronic myelocytic leukemia. Max Vivar M.D. DR: MELODY JOB#: [id number] CC:
[2019-01-17] MEDS: AZTREONAM IVPB SCH ×3 (02:05→19:41)
[2019-01-17] MEDS: NS IVPB SCH ×3 (02:05→19:41)
[2019-01-17 04:00] VITALS: BP 131/66
--- NOTE | 2019-01-17 06:31 | NUR ---
NURSE NOTES: RESTED WELL, NO SIGNIFICANT CHANGE OF CONDITION NOTED THROUGHOUT THE NIGHT. SAFETY MAINTAINED. NAD,.
[2019-01-17] MEDS: NovoLOG Insulin Flexpen SUBQ SCH ×4 (06:58→20:17)
--- NOTE | 2019-01-17 07:45 | NUR ---
NURSE NOTES: Report received from Aida. Pt is resting in bed and having breakfast. Pt is awake, alert, and oriented x4. able to verbalize needs. Pt is on room air and breathing is even and unlabored. No acute resp distress noted. BSC @ bedside. IV access patent and intact. Bed is in lowest position and bed alarm is activated. side rails up x3, Call light is within reach. Will continue to monitor.
[2019-01-17 08:00] VITALS: BP 155/73
[2019-01-17] MEDS: Heparin 5000 units/ml inj SUBQ SCH ×2 (08:35→20:15)
--- NOTE | 2019-01-17 08:45 | NUR ---
NURSE NOTES: home meds reconciled and brought to pharm. receipt placed in chart.
[2019-01-17 08:46] LABS: BASOPHILS % (AUTO) 0.5 % (0.0-2.0); EOSINOPHILS % (AUTO) 8.8 % (0.0-3.0); HEMATOCRIT 33.4 % (37.0-47.0); LYMPHOCYTES % (AUTO) 22.8 % (20.0-45.0); MEAN CORPUSCULAR VOLUME 80 FL (80-99); MONOCYTES % (AUTO) 7.5 % (1.0-10.0); NEUTROPHILS % (AUTO) 60.4 % (45.0-75.0); PLATELET COUNT 225 K/UL (150-450); RED BLOOD COUNT 4.15 M/UL (4.20-5.40); RED CELL DISTRIBUTION WIDTH 13.6 % (11.6-14.8)
--- NOTE | 2019-01-17 08:48 | Consultation ---
History of Present Illness General Date patient seen: Jan 17, 2019 Chief Complaint: Pain Reason for Consultation: inpatient management Present Illness HPI Ms. Stuart is a 53 yo female with PMHx of DM, HTN, CML and CAD who presented to the ED on 01/15/19 with SOB. She was worried about her SOB due to Hx of CABG but has been well on RO since admit. She also reports feeling poorly with body aches. She also had a sore throat and diarrhea yesterday. She other pearson denies Fever, Chill, N/V/D, Abdominal pain, Dysuria and urinary frequency. In the ED she was aferbile with a mild Leukocytosis. UA was positive. ID was consulted for UTI PMHX/PSHx DM HTN CML CAD S/P CABG] C-sec x 2 SocHx No E/T/D FamHx Not contributory Allergies: Coded Allergies: PENICILLIN G (Unverified Allergy, Unknown, 11/08/17) PENICILLINS (Verified Allergy, Unknown, 11/08/17) Medication History Scheduled Acetaminophen* (Acetaminophen 325MG Tablet*), 500 MG ORAL Q6HR, (Reported) Amlodipine Besylate (Norvasc), 10 MG ORAL DAILY Aspirin* (Aspir-Low*), 81 MG ORAL DAILY, (Reported) Atorvastatin Calcium* (Atorvastatin Calcium*), 40 MG ORAL BEDTIME, (Reported) Calcium Carbonate ([id number]), 500 MG PO DAILY, (Reported) Celecoxib* (Celebrex*), Unknown Dose ORAL TWICE A DAY, (Reported) Clindamycin HCl (Clindamycin HCl), 300 MG ORAL EVERY 6 HOURS Dasatinib (Sprycel), 100 MG PO DAILY, (Reported) Diclofenac Sod* (Voltaren*), 75 MG ORAL THREE TIMES A DAY, (Reported) Docusate Sodium (Doc-Q-Lace), 100 MG ORAL BID, (Reported) Fluticasone Propionate (Flovent Hfa), 2 PUFFS INH TWICE A DAY, (Reported) Gabapentin (Neurontin), 300 MG ORAL TID@09,15,21 Gemfibrozil (Gemfibrozil*), 600 MG ORAL BID, (Reported) Glyburide/Metformin Hcl (Glyburide-Metformin 5-500 Mg), 2 EACH PO DAILY, ( Reported) Insulin Regular, Human* (Novolin R*), Unknown Dose SUBQ .SLIDING SCALE, ( Reported) Isosorbide Mononitrate* (Imdur*), 30 MG ORAL DAILY, (Reported) Lisinopril (Lisinopril*), 20 MG ORAL DAILY, (Reported) Loratadine (Loratadine), 10 MG PO DAILY, (Reported) Losartan Potassium* (Losartan Potassium*), Unknown Dose ORAL DAILY, (Reported) Losartan/Hydrochlorothiazide (Losartan-Hctz 100-25 Mg Tab), 1 TAB ORAL DAILY, ( Reported) Metformin Hcl* (Glucophage*), Unknown Dose ORAL DAILY, (Reported) Metoclopramide Hcl* (Metoclopramide Hcl*), 10 MG PO TID, (Reported) Metoprolol Tartrate* (Metoprolol Tartrate*), 50 MG ORAL BID, (Reported) Metoprolol Tartrate* (Metoprolol Tartrate*), Unknown Dose ORAL EVERY 12 HOURS, ( Reported) Pantoprazole* (Pantoprazole*), 40 MG ORAL DAILY, (Reported) Pioglitazone Hcl* (Actos*), 15 MG ORAL DAILY, (Reported) Ranolazine* (Ranexa*), 500 MG ORAL EVERY 12 HOURS, (Reported) Rivaroxaban (Xarelto*), 20 MG ORAL DAILY, (Reported) Sitagliptin* (Januvia*), Unknown Dose ORAL DAILY, (Reported) Sitagliptin* (Januvia*), 25 MG ORAL DAILY, (Reported) Sitagliptin* (Januvia*), 25 MG ORAL DAILY, (Reported) Scheduled PRN Diphenhydramine Hcl* (Diphenhydramine Hcl*), 25 MG ORAL Q6H PRN for Itching, ( Reported) Hydrocodone Bit/Acetaminophen 5-325* ([place] 5-325*), 1 TAB ORAL Q6H PRN for For Pain Miscellaneous Medications Aspirin (Rajan Advanced), 200 MG ORAL, (Reported) Isosorbide Dinitrate (Isosorbide Dinitrate*), Unknown Dose ORAL, (Reported) Naproxen Sodium (Aleve), 220 MG PO, (Reported) Triamcinolone Acetonide (Triamcinolone Acetonide), 15 GM TP, (Reported) Unable to Obtain Medications (Unable To Obtain Meds), (Reported) Patient History Healthcare decision maker SELF, ROSEMARIEONEIDA JUSTIN Resuscitation status Full Code Advanced Directive on File No Review of Systems All Other Systems: negative except mentioned in HPI Physical Exam Last 24 Hour Vital Signs Date Time Temp Pulse Resp B/P (MAP) Pulse Ox O2 Delivery O2 Flow Rate FiO2 01/17/19 08:00 98.1 67 18 155/73 (100) 100 01/17/19 04:00 97.8 69 18 131/66 (87) 100 01/17/19 03:01 98.9 01/17/19 00:00 98.9 64 18 127/62 (83) 99 01/16/19 21:00 Room Air 01/16/19 20:00 99.2 68 18 139/63 (88) 98 01/16/19 16:00 98.7 68 18 122/64 (83) 98 01/16/19 11:56 98.5 60 20 120/61 (80) 99 01/16/19 09:00 Room Air Intake and Output 01/16/19 01/17/19 19:00 07:00 Intake Total 460 ml 580 ml Balance 460 ml 580 ml Intake Oral 360 ml 480 ml IV Total 100 ml 100 ml # Voids 3 3 Laboratory Tests Test 01/16/19 20:17 01/16/19 23:30 Troponin I 0.007 ng/mL (0.000-0.056) Pro-B-Type Natriuretic Peptide 626 pg/mL (0-125) H Urine Color Pale yellow Urine Appearance Clear Urine pH 5 (4.5-8.0) Urine Specific [place] 1.010 (1.005-1.035) Urine Protein 2+ (NEGATIVE) H Urine Glucose (UA) 4+ (NEGATIVE) H Urine Ketones Negative (NEGATIVE) Urine Blood Negative (NEGATIVE) Urine Nitrite Negative (NEGATIVE) Urine Bilirubin Negative (NEGATIVE) Urine Urobilinogen Normal MG/DL (0.0-1.0) Urine Leukocyte Esterase Negative (NEGATIVE) Urine RBC 0-2 /HPF (0 - 2) Urine WBC 0-2 /HPF (0 - 2) Urine Squamous Epithelial Cells Few /LPF (NONE/OCC) Urine Bacteria Few /HPF (NONE) Urine Eosinophils None seen (NONE SEEN) Urine Random Creatinine Pending Urine Random Microalbumin Pending Urine Random Sodium 25 mmol/L (20-110) Urine Creatinine 59.9 MG/DL (30.0-125.0) Urine Microalbumin/Creatinine Ratio Pending Urine Potassium Timed 43 mmol/L (12-62) Height (Feet): 5 Height (Inches): 2.00 Weight (Pounds): 205 Medications Current Medications Medications (Trade) Dose Ordered Sig/Ruiz Route PRN Reason Start Time Stop Time Status Last Admin Dose Admin Acetaminophen (Tylenol) 650 mg Q4H PRN ORAL Mild Pain/Temp > 100.5 01/16/19 14:36 02/14/19 14:35 01/17/19 02:31 Aztreonam 0.5 gm/ Sodium Chloride 50 ml @ 100 mls/hr Q8H IVPB 01/16/19 10:00 01/23/19 09:59 01/17/19 02:05 Clonidine HCl (Catapres Tab) 0.1 mg Q4H PRN ORAL For High Blood Pressure >160 01/15/19 20:58 02/14/19 20:57 Dextrose (Dextrose 50%) 25 ml Q30M PRN IV Hypoglycemia 01/16/19 13:45 02/15/19 13:44 Dextrose (Dextrose 50%) 50 ml Q30M PRN IV Hypoglycemia 01/16/19 13:45 02/15/19 13:44 Heparin Sodium (Porcine) (Heparin 5000 units/ml) 5,000 units EVERY 12 HOURS SUBQ 01/15/19 21:00 02/14/19 20:59 01/16/19 21:33 Insulin Aspart (NovoLOG) BEFORE MEALS AND HS SUBQ 01/16/19 16:30 02/15/19 16:29 01/17/19 06:58 Ondansetron HCl (Zofran) 4 mg Q6H PRN IVP Nausea & Vomiting 01/15/19 20:46 02/14/19 20:45 Polyethylene Glycol (Miralax) 17 gm HSPRN PRN ORAL Constipation 01/15/19 20:45 02/14/19 20:44 Vancomycin HCl (Vanco rx to dose) 1 ea DAILY PRN MISC Per rx protocol 01/15/19 20:45 02/14/19 20:44 Zolpidem Tartrate (Ambien) 5 mg HSPRN PRN ORAL Insomnia 01/15/19 21:00 01/22/19 20:59 Objective Narrative Gen: NAD, well appearing, alert HEENT: NCAT, MMM, EOMI, PERRL, No Oral lesion, no scleral icterus NECK: full range of motion, supple, no meningismus, No LAD, No JVD LUNGS: CTAB, No W/C, No Accessory muscle use CARDS: RRR, S1, S2, No M/R/G, ABD: Soft, NT, ND, No R/G, + BS, No HSM, No Masses : Deferred Ext: C/C/E, Pulses 2+ B/L (DP, Rad): NEURO: A/O x 4, Strength and Sensation Grossly intact PSYCH: Mood/affect normal SKIN: Warm/dry, No rashes Assessment/Plan Assessment/Plan 53 yo female with PMHx of DM, HTN, CML and CAD who presented to the ED on with SOB. UTI Positive UA Body aches and mild leukocytosis Urine Cx growing GNR SOB Resolved Patient on RA No Diarrhea Afebrile DM HTN CML CAD S/P CABG] PLAN - Continue Aztreonam #1/ Will adjust ameya on UCx results - Hopefully we can find a PO option. 01/17/19 S/P Vancomcyin #1 - f/u Urine Cx - Monitor CBC and Temps Thank you for this consult. We will continue to follow the patient with you. Dirk Dalton MD Jan 17, 2019 08:48
[2019-01-17 09:20] LABS: PHOSPHORUS 1.7 MG/DL (2.5-4.9)
[2019-01-17 09:46] LABS: ALANINE AMINOTRANSFERASE 22 U/L (12-78); ALBUMIN 3.4 G/DL (3.4-5.0); ALBUMIN/GLOBULIN RATIO 0.8 (1.0-2.7); ALKALINE PHOSPHATASE 83 U/L (46-116); ANION GAP 12 mmol/L (5-15); ASPARTATE AMINO TRANSFERASE 24 U/L (15-37); BILIRUBIN,TOTAL 0.2 MG/DL (0.2-1.0); BLOOD UREA NITROGEN 37 mg/dL (7-18); CALCIUM 8.9 MG/DL (8.5-10.1); CARBON DIOXIDE 26 MMOL/L (21-32); CHLORIDE 102 MMOL/L (98-107); CREATININE 1.3 MG/DL (0.55-1.30); POTASSIUM 3.2 MMOL/L (3.5-5.1); SODIUM 140 MMOL/L (136-145)
--- NOTE | 2019-01-17 10:27 | NUR ---
NURSE NOTES: Dr Dalton made aware of the ESBL + urine. No new order obtained. patient transferred to room 420-1. will cont to monitor.
[2019-01-17] MEDS ORDERED: Vancomycin 1.5gm Premix 275 ML IVPB ONE (11:00)
--- NOTE | 2019-01-17 11:39 | NUR ---
CASE MANAGEMENT: REVIEW SI: SOB / CORONARY ARTERY DISEASE . UTI T 98.1 HR 67 RR 18 BP 155/73 SAT 99% ROOM AIR WBC 4.0 K 3.2 IS: AZACTAM IV Q8HR CLONIDINE PO Q4HR PRN MED/SURG STATUS DCP: PATIENT IS FROM HOME PLAN: 2D ECHO
[2019-01-17 12:09] VITALS: BP 140/68
--- NOTE | 2019-01-17 12:27 | Consultation ---
Consult Note Consult Note asked to eval at the request of Dr Izquierdo for renal failure Patient states that she woke up early this morning around 3 AM with all over body pain. She states she has had some diarrhea yesterday. She states that her whole body hurts. She states her body hurts from head to toe. She has a history of diabetes, hypertension, hyperlipidemia, coronary artery disease, leukemia. She is currently taking oral therapy for her leukemia. She denies fever or chills. She does have sore throat for the past couple weeks. She denies abdominal pain or chest pain. She denies shortness of breath. She denies cough. She has no other complaints. Allergies: PENICILLIN G (Unverified Allergy, Unknown, 11/08/17) PENICILLINS (Verified Allergy, Unknown, 11/08/17) Past Medical History: see triage record, DM, HTN, [place], CAD, CHF, GERD, other - Leukemia, HLP Past Surgical History: CABG Social History: Denies: smoking, alcohol use, drug use Past Medical History: No History, Except For Hx Hypertension: Yes Hx Diabetes: Yes interviewed examined data reviewed . Assessment/Plan 1) Pyelonephritis (2) ATN (acute tubular necrosis), and severe dehydration ( home meds : Metformin , Volteran, George Inhibitors.... (3) Diabetes mellitus long history of IDDM (4) Penicillin allergy (5) CAD (6) HLP stop hydrate K and Phos supplement adjust BS and BP per orders Robert Baird MD Jan 17, 2019 12:27
[2019-01-17] MEDS ORDERED: GEMFIBROZIL600 MG ORAL (13:39)
[2019-01-17] MEDS ORDERED: ZESTRIL2.5 MG ORAL (13:39)
[2019-01-17] MEDS ORDERED: STARLIX120 MG ORAL (13:39)
[2019-01-17] MEDS ORDERED: BACTRIM DS TAB1 EAC1 ORAL (13:40)
--- NOTE | 2019-01-17 13:46 | Pulmonology Progress Note ---
Assessment/Plan Problems: (1) Pyelonephritis (2) ATN (acute tubular necrosis) (3) Diabetes mellitus (4) Penicillin allergy Assessment/Plan K and phos supplement continue abx bun/creatinine decreasing dc home in am Subjective ROS Limited/Unobtainable: No Constitutional: Reports: no symptoms HEENT: Repors: no symptoms Allergies: Coded Allergies: PENICILLIN G (Unverified Allergy, Unknown, 11/08/17) PENICILLINS (Verified Allergy, Unknown, 11/08/17) Objective Last 24 Hour Vital Signs Date Time Temp Pulse Resp B/P (MAP) Pulse Ox O2 Delivery O2 Flow Rate FiO2 01/17/19 12:09 99.1 67 17 140/68 (92) 98 01/17/19 09:00 Room Air 01/17/19 08:00 98.1 67 18 155/73 (100) 100 01/17/19 04:00 97.8 69 18 131/66 (87) 100 01/17/19 03:01 98.9 01/17/19 00:00 98.9 64 18 127/62 (83) 99 01/16/19 21:00 Room Air 01/16/19 20:00 99.2 68 18 139/63 (88) 98 01/16/19 16:00 98.7 68 18 122/64 (83) 98 Intake and Output 01/16/19 01/17/19 19:00 07:00 Intake Total 460 ml 580 ml Balance 460 ml 580 ml Intake Oral 360 ml 480 ml IV Total 100 ml 100 ml # Voids 3 3 Objective General Appearance: WD/WN, no apparent distress Lines, tubes and drains: peripheral HEENT: normocephalic, atraumatic Neck: non-tender, normal alignment Respiratory/Chest: chest wall non-tender, lungs clear Cardiovascular/Chest: normal peripheral pulses, normal rate Abdomen: normal bowel sounds, non tender, hyperactive bowel sounds Genitourinary/Rectal: normal genital exam Extremities: normal range of motion 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 Lymphatic: anterior cervical Microbiology Date/Time Source Procedure Growth Status 01/15/19 15:57 Urine,Clean Catch Urine Culture - Final Escherichia Coli - Esbl Complete Laboratory Tests 01/16/19 20:17: Troponin I 0.007, Pro-B-Type Natriuretic Peptide 626H 01/16/19 23:30: Urine Color Pale yellow, Urine Appearance Clear, Urine pH 5, Urine Specific [place] 1.010, Urine Protein 2+H, Urine Glucose (UA) 4+H, Urine Ketones Negative , Urine Blood Negative, Urine Nitrite Negative, Urine Bilirubin Negative, Urine Urobilinogen Normal, Urine Leukocyte Esterase Negative, Urine RBC 0-2, Urine WBC 0-2, Urine Squamous Epithelial Cells Few, Urine Bacteria Few, Urine Eosinophils None seen, Urine Random Creatinine [Pending], Urine Random Microalbumin [Pending], Urine Random Sodium 25, Urine Creatinine 59.9, Urine Microalbumin/Creatinine Ratio [Pending], Urine Potassium Timed 43 01/17/19 06:40: Troponin I 0.008, White Blood Count 4.0L, Red Blood Count 4.15L, Hemoglobin 11.0L, Hematocrit 33.4L, Mean Corpuscular Volume 80, Mean Corpuscular Hemoglobin 26.6L, Mean Corpuscular Hemoglobin Concent 33.1, Red Cell Distribution Width 13.6, Platelet Count 225, Mean Platelet Volume 7.0, Neutrophils (%) (Auto) 60.4, Lymphocytes (%) (Auto) 22.8, Monocytes (%) (Auto) 7.5, Eosinophils (%) (Auto) 8.8H, Basophils (%) (Auto) 0.5, Erythrocyte Sedimentation Rate 96H, Sodium Level 140, Potassium Level 3.2L, Chloride Level 102, Carbon Dioxide Level 26, Anion Gap 12, Blood Urea Nitrogen 37H, Creatinine 1.3, Estimat Glomerular Filtration Rate 42.7, Glucose Level 224H, Calcium Level 8.9, Phosphorus Level 1.7L, Magnesium Level 1.8, Total Bilirubin 0.2, Aspartate Amino Transf (AST/SGOT) 24, Alanine Aminotransferase (ALT/SGPT) 22, Alkaline Phosphatase 83, C-Reactive Protein, Quantitative 1.3H, Total Protein 7.8, Albumin 3.4, Globulin 4.4, Albumin/Globulin Ratio 0.8L, Random Vancomycin Level 7.6 Current Medications Medications (Trade) Dose Ordered Sig/Ruiz Route PRN Reason Start Time Stop Time Status Last Admin Dose Admin Acetaminophen (Tylenol) 650 mg Q4H PRN ORAL Mild Pain/Temp > 100.5 01/16/19 14:36 02/14/19 14:35 01/17/19 02:31 Aspirin (Ecotrin) 81 mg DAILY ORAL 01/18/19 09:00 02/17/19 08:59 Aztreonam 0.5 gm/ Sodium Chloride 50 ml @ 100 mls/hr Q8H IVPB 01/16/19 10:00 01/23/19 09:59 01/17/19 09:32 Clonidine HCl (Catapres Tab) 0.1 mg Q4H PRN ORAL For High Blood Pressure >160 01/15/19 20:58 02/14/19 20:57 Dextrose (Dextrose 50%) 25 ml Q30M PRN IV Hypoglycemia 01/16/19 13:45 02/15/19 13:44 Dextrose (Dextrose 50%) 50 ml Q30M PRN IV Hypoglycemia 01/16/19 13:45 02/15/19 13:44 Docusate Sodium (Colace) 100 mg BID ORAL 01/17/19 18:00 02/16/19 17:59 Gemfibrozil (Lopid) 600 mg BID ORAL 01/17/19 18:00 02/16/19 17:59 Heparin Sodium (Porcine) (Heparin 5000 units/ml) 5,000 units EVERY 12 HOURS SUBQ 01/15/19 21:00 02/14/19 20:59 01/16/19 21:33 Insulin Aspart (NovoLOG) BEFORE MEALS AND HS SUBQ 01/16/19 16:30 02/15/19 16:29 01/17/19 12:18 Isosorbide Mononitrate (Imdur) 30 mg DAILY ORAL 01/18/19 09:00 02/17/19 08:59 Lisinopril (Zestril) 2.5 mg DAILY ORAL 01/18/19 09:00 02/17/19 08:59 Lisinopril (Zestril) 2.5 mg ONCE ORAL 01/17/19 14:00 01/17/19 15:00 Nateglinide (Starlix) 120 mg TIAC ORAL 01/17/19 16:30 02/16/19 16:29 Ondansetron HCl (Zofran) 4 mg Q6H PRN IVP Nausea & Vomiting 01/15/19 20:46 02/14/19 20:45 Pantoprazole (Protonix) 40 mg EVERY 12 HOURS ORAL 01/17/19 21:00 02/16/19 20:59 Polyethylene Glycol (Miralax) 17 gm HSPRN PRN ORAL Constipation 01/15/19 20:45 02/14/19 20:44 Potassium Phosphate 30 mm/ Sodium Chloride 285 ml @ 47.5 mls/hr ONCE ONCE IV 01/17/19 14:30 01/17/19 20:29 Zolpidem Tartrate (Ambien) 5 mg HSPRN PRN ORAL Insomnia 01/15/19 21:00 01/22/19 20:59 Laurie Izquierdo MD Jan 17, 2019 13:46
[2019-01-17] MEDS ORDERED: Lisinopril 2.5mg tab ORAL SCH (14:00)
[2019-01-17] MEDS ORDERED: Potassium Phosphate 30 MM in NS 275 ML IV ONE (14:30)
[2019-01-17 16:00] VITALS: BP 137/83
--- NOTE | 2019-01-17 16:27 | Internal Med Progress Note ---
Subjective Date of Service: Jan 17, 2019 Physician Name Max Vivar Attending Physician Ovidio Woods MD Current Medications Medications (Trade) Dose Ordered Sig/Ruiz Route PRN Reason Start Time Stop Time Status Last Admin Dose Admin Acetaminophen (Tylenol) 650 mg Q4H PRN ORAL Mild Pain/Temp > 100.5 01/16/19 14:36 02/14/19 14:35 01/17/19 02:31 Aspirin (Ecotrin) 81 mg DAILY ORAL 01/18/19 09:00 02/17/19 08:59 Aztreonam 0.5 gm/ Sodium Chloride 50 ml @ 100 mls/hr Q8H IVPB 01/16/19 10:00 01/23/19 09:59 01/17/19 09:32 Clonidine HCl (Catapres Tab) 0.1 mg Q4H PRN ORAL For High Blood Pressure >160 01/15/19 20:58 02/14/19 20:57 Dextrose (Dextrose 50%) 25 ml Q30M PRN IV Hypoglycemia 01/16/19 13:45 02/15/19 13:44 Dextrose (Dextrose 50%) 50 ml Q30M PRN IV Hypoglycemia 01/16/19 13:45 02/15/19 13:44 Docusate Sodium (Colace) 100 mg BID ORAL 01/17/19 18:00 02/16/19 17:59 Gemfibrozil (Lopid) 600 mg BID ORAL 01/17/19 18:00 02/16/19 17:59 Heparin Sodium (Porcine) (Heparin 5000 units/ml) 5,000 units EVERY 12 HOURS SUBQ 01/15/19 21:00 02/14/19 20:59 01/16/19 21:33 Insulin Aspart (NovoLOG) BEFORE MEALS AND HS SUBQ 01/16/19 16:30 02/15/19 16:29 01/17/19 12:18 Isosorbide Mononitrate (Imdur) 30 mg DAILY ORAL 01/18/19 09:00 02/17/19 08:59 Lisinopril (Zestril) 2.5 mg DAILY ORAL 01/18/19 09:00 02/17/19 08:59 Nateglinide (Starlix) 120 mg TIAC ORAL 01/17/19 16:30 02/16/19 16:29 Ondansetron HCl (Zofran) 4 mg Q6H PRN IVP Nausea & Vomiting 01/15/19 20:46 02/14/19 20:45 Pantoprazole (Protonix) 40 mg EVERY 12 HOURS ORAL 01/17/19 21:00 02/16/19 20:59 Polyethylene Glycol (Miralax) 17 gm HSPRN PRN ORAL Constipation 01/15/19 20:45 02/14/19 20:44 Potassium Phosphate 30 mm/ Sodium Chloride 285 ml @ 47.5 mls/hr ONCE ONCE IV 01/17/19 14:30 01/17/19 20:29 01/17/19 14:35 Sitagliptin Phosphate (Januvia) 25 mg DAILY ORAL 01/17/19 15:00 02/16/19 14:59 Zolpidem Tartrate (Ambien) 5 mg HSPRN PRN ORAL Insomnia 01/15/19 21:00 01/22/19 20:59 Allergies: Coded Allergies: PENICILLIN G (Unverified Allergy, Unknown, 11/08/17) PENICILLINS (Verified Allergy, Unknown, 11/08/17) ROS Limited/Unobtainable: No Constitutional: Reports: no symptoms HEENT: Reports: no symptoms Cardiovascular: Reports: no symptoms Respiratory: Reports: shortness of breath Gastrointestinal/Abdominal: Reports: no symptoms Neurologic/Psychiatric: Reports: no symptoms Subjective 53 YO F admitted with shortness of breath. Now julián heart failure. Cover for Int margarita-Dr Woods Objective Last Vital Signs Date Time Temp Pulse Resp B/P (MAP) Pulse Ox O2 Delivery O2 Flow Rate FiO2 01/17/19 14:34 140/68 01/17/19 12:09 99.1 67 17 98 01/17/19 09:00 Room Air Laboratory Tests Test 01/16/19 20:17 01/16/19 23:30 01/17/19 06:40 Troponin I 0.007 ng/mL (0.000-0.056) 0.008 ng/mL (0.000-0.056) Pro-B-Type Natriuretic Peptide 626 pg/mL (0-125) H Urine Color Pale yellow Urine Appearance Clear Urine pH 5 (4.5-8.0) Urine Specific [place] 1.010 (1.005-1.035) Urine Protein 2+ (NEGATIVE) H Urine Glucose (UA) 4+ (NEGATIVE) H Urine Ketones Negative (NEGATIVE) Urine Blood Negative (NEGATIVE) Urine Nitrite Negative (NEGATIVE) Urine Bilirubin Negative (NEGATIVE) Urine Urobilinogen Normal MG/DL (0.0-1.0) Urine Leukocyte Esterase Negative (NEGATIVE) Urine RBC 0-2 /HPF (0 - 2) Urine WBC 0-2 /HPF (0 - 2) Urine Squamous Epithelial Cells Few /LPF (NONE/OCC) Urine Bacteria Few /HPF (NONE) Urine Eosinophils None seen (NONE SEEN) Urine Random Creatinine Pending Urine Random Microalbumin Pending Urine Random Sodium 25 mmol/L (20-110) Urine Creatinine 59.9 MG/DL (30.0-125.0) Urine Microalbumin/Creatinine Ratio Pending Urine Potassium Timed 43 mmol/L (12-62) White Blood Count 4.0 K/UL (4.8-10.8) L Red Blood Count 4.15 M/UL (4.20-5.40) L Hemoglobin 11.0 G/DL (12.0-16.0) L Hematocrit 33.4 % (37.0-47.0) L Mean Corpuscular Volume 80 FL (80-99) Mean Corpuscular Hemoglobin 26.6 PG (27.0-31.0) L Mean Corpuscular Hemoglobin Concent 33.1 G/DL (32.0-36.0) Red Cell Distribution Width 13.6 % (11.6-14.8) Platelet Count 225 K/UL (150-450) Mean Platelet Volume 7.0 FL (6.5-10.1) Neutrophils (%) (Auto) 60.4 % (45.0-75.0) Lymphocytes (%) (Auto) 22.8 % (20.0-45.0) Monocytes (%) (Auto) 7.5 % (1.0-10.0) Eosinophils (%) (Auto) 8.8 % (0.0-3.0) H Basophils (%) (Auto) 0.5 % (0.0-2.0) Erythrocyte Sedimentation Rate 96 MM/HR (0-30) H Sodium Level 140 MMOL/L (136-145) Potassium Level 3.2 MMOL/L (3.5-5.1) L Chloride Level 102 MMOL/L (98-107) Carbon Dioxide Level 26 MMOL/L (21-32) Anion Gap 12 mmol/L (5-15) Blood Urea Nitrogen 37 mg/dL (7-18) H Creatinine 1.3 MG/DL (0.55-1.30) Estimat Glomerular Filtration Rate 42.7 mL/min (>60) Glucose Level 224 MG/DL (74-106) H Calcium Level 8.9 MG/DL (8.5-10.1) Phosphorus Level 1.7 MG/DL (2.5-4.9) L Magnesium Level 1.8 MG/DL (1.8-2.4) Total Bilirubin 0.2 MG/DL (0.2-1.0) Aspartate Amino Transf (AST/SGOT) 24 U/L (15-37) Alanine Aminotransferase (ALT/SGPT) 22 U/L (12-78) Alkaline Phosphatase 83 U/L (46-116) C-Reactive Protein, Quantitative 1.3 mg/dL (0.00-0.90) H Total Protein 7.8 G/DL (6.4-8.2) Albumin 3.4 G/DL (3.4-5.0) Globulin 4.4 g/dL Albumin/Globulin Ratio 0.8 (1.0-2.7) L Random Vancomycin Level 7.6 ug/mL Microbiology Date/Time Source Procedure Growth Status 01/15/19 15:57 Urine,Clean Catch Urine Culture - Final Escherichia Coli - Esbl Complete Intake and Output 01/16/19 01/17/19 18:59 06:59 Intake Total 460 ml 580 ml Balance 460 ml 580 ml Intake Oral 360 ml 480 ml IV Total 100 ml 100 ml # Voids 3 3 Objective PHYSICAL EXAMINATION: GENERAL: The patient is a well-developed and well-nourished female, in no apparent distress. HEENT: Eyes, pupils are equal and responsive to light and accommodation. Extraocular movements are intact. NECK: Supple without lymphadenopathy. CHEST: Lungs are clear to auscultation bilaterally without wheezes or rales. CARDIOVASCULAR: Regular rhythm and rate. S1 and S2 normal without murmurs, rubs, or gallops. ABDOMEN: Soft, nontender, and nondistended. Positive bowel sounds. No evidence of hepatosplenomegaly. Currently, no rebound or guarding noted. EXTREMITIES: Negative for clubbing, cyanosis, or edema. RECTAL/GENITAL: Refused. NEUROLOGIC: Cranial nerves II through XII are grossly intact without focal deficits. Motor strength is 5/5 bilaterally. Deep tendon reflexes are 2+ plantar. Assessment/Plan Assessment/Plan ASSESSMENT: This is a 53-year-old female with: 1. Shortness of breath. 2. Generalized myalgias. 3. Diabetes type 2. 4. Hypertension. 5. Coronary artery disease. 6. Chronic myelocytic leukemia. TREATMENT: 1. Shortness of breath/coronary artery disease. A Cardiology consultation has been obtained with Dr. Boo Gustafson. An echocardiogram is pending. Serial troponin levels will be performed. BNP is pending. We will follow recommendation of Cardiology. 2. Diabetes type 2. An Endocrinology consultation has been obtained with Dr. Coelho. 3. Hypertension. Continue antihypertensive medications as above. 4. Renal failure. A Nephrology consultation has been obtained with Dr. Baird. 5. Chronic myelocytic leukemia. Max Vivar MD Jan 17, 2019 16:27
[2019-01-17] MEDS: Docusate 100mg cap ORAL SCH (17:06)
[2019-01-17] MEDS: sitaGLIPtin 25mg tab ORAL SCH (17:06)
--- NOTE | 2019-01-17 19:12 | NUR ---
HAND-OFF: Report given to Dru.
--- NOTE | 2019-01-17 19:41 | NUR ---
NURSE NOTES: Received report from MARJORIE Connelly. Pt received awake alert, bed in lowest position, call light within reach, able to make needs known, IV in place, no signs of distress or c/o pain, will continue to monitor.
[2019-01-17 20:00] VITALS: BP 122/83
--- NOTE | 2019-01-17 23:15 | Consultation ---
DATE OF CONSULTATION: 01/17/2019 CARDIOLOGY CONSULTATION CONSULTING PHYSICIAN: Boo Gustafson M.D. REFERRING PHYSICIAN: Ovidio Woods M.D. REASON FOR CONSULTATION: Management of hypertension and coronary artery disease. HISTORY OF PRESENT ILLNESS: The patient is a 53-year-old lady with history of hypertension, diabetes, and coronary artery disease, history of coronary artery bypass graft at [facility] in 2006. 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 The patient came to the emergency room complaining of increasing body ache and shortness of breath. Her EKG shows sinus bradycardia, rate of 56, nonspecific intraventricular conduction delay, and old anterior wall DE. The patient was admitted and Cardiology consultation was obtained for further evaluation and management. REVIEW OF SYSTEMS: Negative other than what is mentioned in the history of present illness. PAST MEDICAL HISTORY: 1. Hypertension. 2. Diabetes. 3. Chronic kidney disease. 4. CML. MEDICATIONS: Per reconciliation. PAST SURGICAL HISTORY: Include and coronary bypass graft in 2006. ALLERGIES: She is allergic to penicillin. PHYSICAL EXAMINATION: VITAL SIGNS: Blood pressure is 140/68, pulse 67, respirations 18, she is afebrile. HEAD AND NECK: Showed no JVD or carotid bruit. LUNGS: Clear. CARDIOVASCULAR: Shows regular S1 and S2 with no gallop. Sternotomy scar is intact. ABDOMEN: Soft. EXTREMITIES: No pitting edema. Scar of vein harvesting on her left leg is evident. LABORATORY DATA: Labs show white count of 4, hemoglobin of 11, hematocrit 33.4, and platelet count is 225,000. Sodium 140, potassium 3.2, BUN of 37, creatinine 1.3. Troponin is negative. ASSESSMENT AND PLAN: 1. Shortness of breath. The patient will be ruled out for myocardial infarction by serial cardiac enzymes and currently does not have any chest pain. Continue aspirin and Imdur 30 mg daily as well as Lopid. Keep the patient off beta-abner in view of bradycardia. 2. Hypertension on lisinopril 2.5 mg daily and Imdur. 3. Hyperlipidemia, on Lopid. 4. Diabetes, on Januvia. We will also get an echocardiogram for further evaluation and management. 5. History of leukemia. Thank you very much for allowing me to participate in the care of this patient. Please do not hesitate to contact me if you have any questions regarding my evaluation. Sincerely, Boo Gustafson M.D. DR: MARIMAR JOB#: [id number] CC:
[2019-01-18] VITALS: BP 92/54
[2019-01-18] MEDS: NS IVPB SCH ×2 (03:12→11:00)
[2019-01-18] MEDS: AZTREONAM IVPB SCH ×2 (03:12→11:00)
[2019-01-18 04:00] VITALS: BP 114/70
[2019-01-18 05:57] LABS: EOSINOPHILS % (AUTO) 8.7 % (0.0-3.0); HEMOGLOBIN 11.2 G/DL (12.0-16.0); MEAN CORPUSCULAR VOLUME 79 FL (80-99); MONOCYTES % (AUTO) 9.9 % (1.0-10.0); NEUTROPHILS % (AUTO) 54.6 % (45.0-75.0); PLATELET COUNT 211 K/UL (150-450); RED BLOOD COUNT 4.16 M/UL (4.20-5.40); RED CELL DISTRIBUTION WIDTH 13.3 % (11.6-14.8); WHITE BLOOD COUNT 3.8 K/UL (4.8-10.8)
[2019-01-18] MEDS: NovoLOG Insulin Flexpen SUBQ SCH (06:00)
[2019-01-18 06:32] LABS: % IRON SATURATION 22 % (15-50); IRON 70 ug/dL (50-175); TOTAL IRON BINDING CAPACITY 317 ug/dL (250-450)
[2019-01-18 06:33] LABS: ALANINE AMINOTRANSFERASE 30 U/L (12-78); ALBUMIN 3.5 G/DL (3.4-5.0); ALBUMIN/GLOBULIN RATIO 0.8 (1.0-2.7); ALKALINE PHOSPHATASE 77 U/L (46-116); ANION GAP 13 mmol/L (5-15); ASPARTATE AMINO TRANSFERASE 30 U/L (15-37); BILIRUBIN,TOTAL 0.3 MG/DL (0.2-1.0); BLOOD UREA NITROGEN 26 mg/dL (7-18); CALCIUM 8.9 MG/DL (8.5-10.1); CARBON DIOXIDE 27 MMOL/L (21-32); CHLORIDE 102 MMOL/L (98-107); CREATININE 1.1 MG/DL (0.55-1.30); POTASSIUM 3.5 MMOL/L (3.5-5.1); SODIUM 142 MMOL/L (136-145)
[2019-01-18 06:48] LABS: PHOSPHORUS 2.8 MG/DL (2.5-4.9)
--- NOTE | 2019-01-18 07:14 | NUR ---
HAND-OFF: Report given to AJ Alonso.
--- NOTE | 2019-01-18 07:30 | NUR ---
NURSE NOTES: Report received from [facility]. Pt is calm and comfortable in bed and having breakfast. Pt is awake, alert, and oriented x4. able to make things known. Pt is on room air and breathing is even and unlabored. No acute resp distress noted. BSC @ bedside. IV access patent and intact. Bed is in lowest position and bed alarm is activated. side rails up x3, Call light is within reach. Will continue to monitor.
[2019-01-18 08:00] VITALS: BP 127/70
[2019-01-18] MEDS: Docusate 100mg cap ORAL SCH (08:28)
[2019-01-18 08:29] VITALS: BP 127/70
[2019-01-18] MEDS: sitaGLIPtin 25mg tab ORAL SCH (08:29)
[2019-01-18] MEDS: Heparin 5000 units/ml inj SUBQ SCH (08:31)
[2019-01-18] MEDS ORDERED: Lisinopril 2.5mg tab ORAL SCH (09:00)
[2019-01-18] MEDS ORDERED: Aspirin EC 81mg tab ORAL SCH (09:00)
[2019-01-18] MEDS ORDERED: Imdur 30mg tab ORAL SCH (09:00)
--- NOTE | 2019-01-18 11:05 | NUR ---
NURSE NOTES: d/c home with instructions and Rx given. removed IV heplock. verified home address and taxi voucher provided. called and left vm to Alice, daughter to inform for discharge. In stable condition. No N/V or discomfort noted. excellent appetite. personal belongings reviewed and noted. No personal belonging list upon admission made.
[2019-01-18] MEDS ORDERED: Tubing IV Secondary IV ONE (11:13)
--- NOTE | 2019-01-18 13:39 | Nephrology Progress Note ---
Assessment/Plan Problem List: (1) ATN (acute tubular necrosis) (2) Accelerated hypertension Assessment 1) Pyelonephritis (2) ATN (acute tubular necrosis), and severe dehydration ( home meds : Metformin , Volteran, George Inhibitors.... (3) Diabetes mellitus long history of IDDM (4) Penicillin allergy (5) CAD (6) HLP Plan stop hydrate K and Phos supplement as needed adjust BS and BP per orders ? DC Subjective ROS Limited/Unobtainable: No Interval Events/Complaints seen at 9.30 am Objective Objective Last 24 Hour Vital Signs Date Time Temp Pulse Resp B/P (MAP) Pulse Ox O2 Delivery O2 Flow Rate FiO2 01/18/19 08:29 127/70 01/18/19 08:28 127/70 01/18/19 08:00 97.9 68 18 127/70 (89) 100 01/18/19 04:00 98.5 70 18 114/70 (85) 99 01/18/19 00:00 97.5 68 18 92/54 (67) 98 01/17/19 21:00 Room Air 01/17/19 20:00 97.7 69 18 122/83 (96) 95 01/17/19 16:00 99.7 72 19 137/83 (101) 99 01/17/19 14:34 140/68 Intake and Output 01/17/19 01/18/19 19:00 07:00 Intake Total 920 ml 100 ml Balance 920 ml 100 ml Intake Oral 120 ml IV Total 100 ml Other 800 ml # Voids 2 2 Laboratory Tests 01/18/19 05:47: White Blood Count 3.8L, Red Blood Count 4.16L, Hemoglobin 11.2L, Hematocrit 33.0L, Mean Corpuscular Volume 79L, Mean Corpuscular Hemoglobin 26.8L, Mean Corpuscular Hemoglobin Concent 33.8, Red Cell Distribution Width 13.3, Platelet Count 211, Mean Platelet Volume 6.2L, Neutrophils (%) (Auto) 54.6, Lymphocytes ( %) (Auto) 26.0, Monocytes (%) (Auto) 9.9, Eosinophils (%) (Auto) 8.7H, Basophils (%) (Auto) 1.0, Sodium Level 142, Potassium Level 3.5, Chloride Level 102, Carbon Dioxide Level 27, Anion Gap 13, Blood Urea Nitrogen 26H, Creatinine 1.1, Estimat Glomerular Filtration Rate 51.8, Glucose Level 153H, Uric Acid 6.2 , Calcium Level 8.9, Phosphorus Level 2.8, Magnesium Level 1.7L, Iron Level 70, Total Iron Binding Capacity 317, Percent Iron Saturation 22, Unsaturated Iron Binding 247, Ferritin 175, Total Bilirubin 0.3, Aspartate Amino Transf (AST/SGOT ) 30, Alanine Aminotransferase (ALT/SGPT) 30, Alkaline Phosphatase 77, Troponin I 0.003, Pro-B-Type Natriuretic Peptide 833H, Total Protein 8.0, Albumin 3.5, Globulin 4.5, Albumin/Globulin Ratio 0.8L, Lipase 954H, Vitamin B12 Level 980, Folate 29.4, Thyroid Stimulating Hormone (TSH) 4.786H, Random Vancomycin Level 3.2 Height (Feet): 5 Height (Inches): 2.00 Weight (Pounds): 205 General Appearance: no apparent distress Objective no change Robert Baird MD Jan 18, 2019 13:39
--- NOTE | 2019-01-19 12:41 | Cardiology Report ---
APPROVED REPORT EKG Measurement Heart [id number] Sinus rhythm with occasional premature ventricular complexes Nonspecific intraventricular block Cannot rule out Septal infarct, age undetermined Abnormal ECG
--- NOTE | 2019-01-19 12:58 | Cardiology Report ---
APPROVED REPORT EKG Measurement Heart [id number] Sinus bradycardia Nonspecific intraventricular block Cannot rule out Anteroseptal infarct, age undetermined Abnormal ECG
--- NOTE | 2019-01-19 14:27 | Cardiology Report ---
APPROVED REPORT EXAM: Two-dimensional and M-mode echocardiogram with Doppler and color Doppler. INDICATION Shortness of breath M-Mode DIMENSIONS IVSd1.9 (0.7-1.1cm)Left Atrium (MM)3.9 (1.6-4.0cm) LVDd3.8 (3.5-5.6cm)Aortic Root2.9 (2.0-3.7cm) PWd1.9 (0.7-1.1cm)Aortic Cusp Exc.1.8 (1.5-2.0cm) LVDs2.0 (2.5-4.0cm) PWs3.2 cm Normal left ventricular chamber size, systolic function and wall motion. Left ventricular ejection fraction estimated to be 60 %. Mild left ventricular hypertrophy. No evidence of pericardial effusion. All other cardiac chamber sizes are within normal limits. Focal aortic valve sclerosis with adequate cusp excursion. Thickened mitral valve leaflets with normal excursion. Mild mitral annulus and aortic root calcification. Normal pulmonic valve structure. Normal tricuspid valve structure. IVC is normal in size with physiological collapse. A color flow and spectral Doppler study was performed and revealed: No aortic insufficiency. No mitral regurgitation. Mitral inflow velocities indicates possible pseudo normalization pattern implying significant left ventricular diastolic dysfunction (Grade II). No tricuspid regurgitation. Tricuspid systolic velocities suggests peak right ventricular systolic pressure of 11 mmHg. Trace pulmonic regurgitation present.
--- NOTE | 2019-01-20 11:46 | Discharge Summary ---
Discharge Summary Discharge Summary _ DATE OF ADMISSION: 01/15/2019 DATE OF DISCHARGE: 01/18/2019 DISCHARGED BY: Dr. Woods REASON FOR ADMISSION: 53 years old female with past medical history of hypertension, coronary artery disease, history of myocardial infarction, CHF, GERD, leukemia, diabetes mellitus, presented to emergency room with generalized body pain. Patient reported diarrhea . Patient reported sore throat for the past couple weeks. Patient on oral therapy for leukemia. She denied fever and chills. She denied chest pain ,shortness of breath. She denied abdominal pain. She denied cough. Upon evaluation vital signs reveal bradycardia with heart rate of 55. Laboratory workup revealed no leukocytosis, hemoglobin 12.9, hematocrit 37.5, platelets 232. Potassium 3.0. BUN 99, creatinine 3.8. Glucose 120. Stable LFT. Albumin 3.9. 9 CK 487. Lipid panel revealed stable cholesterol and LDL , elevated triglyceride -242. EKG revealed sinus bradycardia with nonspecific intraventricular block. Troponin negative. 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 Mild generalized atrophy of the brain. Urinalysis revealed evidence of probable urinary tract infection with significant pyuria, hematuria, some bacteria, +2 protein, +5 blood. CONSULTANTS: slitter cut off operator Dr. Diaz pulmonary Dr. Izquierdo ID specialist Dr. Mohamud senior power scheduler Dr. Baird HOSPITAL COURSE: Patient admitted and started on IV hydration with close monitoring of volumes , renal parameters and electrolytes. Order Checker Packer Processer closely followed. Electrolytes were replaced as needed. Acute renal failure was likely due to acute tubular necrosis and severe dehydration. Patient was at home on nonsteroid anti-inflammatory medication, EJ inhibitor, and metformin, which all likely contributed to acute tubular necrosis. Prior to discharge, creatinine from 3.8 down to 1.1 and BUN from 99 down to 26. Patient was recommended to avoid nephrotoxic. Anti-glycemic antihypertensive medication regimen was optimized. Blood sugar was managed with Starlix, Januvia, and sliding scale of insulin as needed. Hemoglobin A1c 14.2, clearly not at goal. Patient will need further optimization of anti-glycemic regimen as outpatient ; avoid metformin. Patient was counseled on compliance with medication regimen. ID specialist followed. Urine culture revealed E. coli ESBL. Antibiotic regimen was changed from IV to oral upon discharge to complete the course. Admitting Clerk closely followed. Echocardiogram revealed preserved ejection fraction of 60% with mild left ventricular hypertrophy. No evidence of pericardial effusion. No evidence of wall motion abnormality. Significant left ventricular diastolic dysfunction grade 2. Right ventricular systolic pressure of 11. Serial troponin were negative. EKG revealed no acute ischemic changes. Patient was ruled out for acute MS. Antiplatelet therapy with aspirin and Imdur were continued along with Lopid. No beta-abner due to bradycardia. Blood pressure was managed with EJ inhibitor and Imdur. Blood pressure stabilized. Supplemental oxygen provided as needed to keep pulse oximetry above 92%. Pulmonary toilet was on standby as needed. Pulse oximetry stable on room air. GI prophylaxis provided. Supportive care provided. Bowel regimen instituted. FINAL DIAGNOSES: Acute renal failure due to acute tubular necrosis and severe dehydration Pyelonephritis with E. coli ESBL Diabetes mellitus , out of control Coronary artery disease with history of MS Chronic myelocytic leukemia Accelerated hypertension Hyperlipidemia DISCHARGE MEDICATIONS: See Medication Reconciliation list. DISCHARGE INSTRUCTIONS: Patient was discharged home. Follow up with primary care provider in one week. I have been assigned to dictate discharge summary for this account. I was not involved in the patient's management. Elena Huffman NP Jan 20, 2019 11:46
== END 2019-01-18 11:14 | disposition home or self-care (01) | DRG 469 ==
LOC: EMR 15:09 → 4E 19:30 → EDBEDREQ 20:41 → 4E 01-17 10:07
DX: N17.0 Acute kidney failure with tubular necrosis (principal); C92.10 Chronic myeloid leukemia, BCR/ABL-positive, not having achieved remission; E11.65 Type 2 diabetes mellitus with hyperglycemia; B96.89 Other specified bacterial agents as the cause of diseases classified elsewhere; E86.0 Dehydration; N12 Tubulo-interstitial nephritis, not specified as acute or chronic; B96.20 Unspecified Escherichia coli [E. coli] as the cause of diseases classified elsewhere; Z16.12 Extended spectrum beta lactamase (ESBL) resistance; Z16.39 Resistance to other specified antimicrobial drug; I25.10 Atherosclerotic heart disease of native coronary artery without angina pectoris; I25.2 Old myocardial infarction; I10 Essential (primary) hypertension; Z79.4 Long term (current) use of insulin; E78.5 Hyperlipidemia, unspecified; Z95.1 Presence of aortocoronary bypass graft; Z79.82 Long term (current) use of aspirin
CPT/HCPCS: 36415; 70450; 80053; 80061; 80202; 81001; 81003; 82043; 82550; 82570; 82607; 82728; 82746; 82962; 83036; 83540; 83550; 83690; 83735; 83880; 84100; 84133; 84300; 84439; 84443; 84481; 84484; 84550; 85025; 85610; 85651; 85730; 86140; 87086; 87181; 89050; 93005; 93306; 96361; 96365; 96375; 99285; J1815; J8499

== ENCOUNTER 2020-08-17 14:55 | Emergency (ER) | payer OTHER ==
[~2020-08-17] VITALS: Ht 157.5 cm; Wt 90.7 kg
[2020-08-17 14:55] VITALS: BP 135/90
[~2020-08-17 14:55] MED LIST changes: +BACTRIM DS TAB1 EAC1 ORAL; +SPRYCEL100 MG PO; +STARLIX120 MG ORAL; +UNOBMED; +ZESTRIL2.5 MG ORAL
[2020-08-17] MEDS ORDERED: Insulin Human Regular 100units/ml 3ml IV ONE (15:00)
--- NOTE | 2020-08-17 15:04 | Emergency Room Report ---
History of Present Illness General Chief Complaint: Abnormal Labs Source: Patient Present Illness HPI Patient is a 55-year-old female presents for increased generalized weakness and polyuria. Patient had run out of her insulin approximately 2 weeks ago. She normally takes 30 units of short acting insulin and 30 units of long-acting insulin daily but has been off of her medications since running out. Had been checked at her clinic and was told that her blood sugar was high. Patient was brought in by EMS. Had not been having any vomiting. Denies any diarrhea. Denies any chest discomfort. She reports having history of hypertension. Reports having some generalized headache as well as blurring of her vision as well as increased urination. Allergies: Coded Allergies: PENICILLIN G (Unverified Allergy, Unknown, 11/08/17) PENICILLINS (Verified Allergy, Unknown, 11/08/17) Uncoded Allergies: PENICILLIN (Allergy, Unknown, 08/17/20) COVID-19 Screening Contact w/high risk pt: No Experienced COVID-19 symptoms?: No COVID-19 Testing performed HELPER MARBLE FINISHER: No Patient History Past Medical History: see triage record Now: No Reviewed Nursing Documentation: PMH: Agreed; PSxH: Agreed Nursing Documentation-PMH Hx Cardiac Problems: Yes - CABG 2006 Hx Hypertension: Yes Hx Diabetes: Yes Hx Cerebrovascular Accident: Yes - 20 YEARS AGO Hx Seizures: Yes - SEIZURE X1 2016 Review of Systems All Other Systems: negative except mentioned in HPI Physical Exam Vital Signs Date Time Temp Pulse Resp B/P (MAP) Pulse Ox O2 Delivery O2 Flow Rate FiO2 08/17/20 14:51 98.6 80 18 135/90 (105) 96 Room Air Sp02 EP Interpretation: reviewed, normal General Appearance: normal inspection, well appearing, no apparent distress, alert, GCS 15 Head: atraumatic ENT: normal ENT inspection, hearing grossly normal, normal voice Neck: normal inspection, full range of motion, supple, no bony tend Respiratory: normal inspection, lungs clear, normal breath sounds, no respiratory distress, no retraction, no wheezing Cardiovascular #1: regular rate, rhythm, no edema Gastrointestinal: normal inspection, normal bowel sounds, non tender, soft, no guarding, no hernia Genitourinary: no CVA tenderness Musculoskeletal: normal inspection, back normal, normal range of motion Neurologic: alert, motor strength/tone normal, color control supervisor III-XII nml as tested, oriented x3, responsive, speech normal, normal inspection Psychiatric: normal inspection, judgement/insight normal, mood/affect normal Medical Decision Making Diagnostic Impression: Primary Impression: Diabetes mellitus Additional Impressions: Hyperglycemia Nonadherence to medication ER Course She presented for elevated blood sugar. Differential diagnosis include was not limited to medication noncompliance, diabetic ketoacidosis, myocardial infarction, among others. Because of complexity of patient's case laboratory tests and imaging studies were ordered. A EKG interpreted by me showed normal sinus rhythm with possible septal infarct with inferior ST depression. Repeat EKG was unchanged. There does not appear to be any dynamic changes. Patient was noted on IV fluids. She was given IV insulin. She had some noted elevation of her lipase on laboratory testing. Does not describe any abdominal pain or chest discomfort. She was given aspirin. Patient was given IV fluids. Patient was discussed with Dr. Oneil for transfer to [facility] who agreed accept the patient as transfer. Labs Test 08/17/20 15:00 08/17/20 15:30 White Blood Count 10.3 K/UL (4.8-10.8) Red Blood Count 4.85 M/UL (4.20-5.40) Hemoglobin 13.2 G/DL (12.0-16.0) Hematocrit 39.1 % (37.0-47.0) Mean Corpuscular Volume 81 FL (80-99) Mean Corpuscular Hemoglobin 27.3 PG (27.0-31.0) Mean Corpuscular Hemoglobin Concent 33.9 G/DL (32.0-36.0) Red Cell Distribution Width 14.2 % (11.6-14.8) Platelet Count 351 K/UL (150-450) Mean Platelet Volume 7.5 FL (6.5-10.1) Neutrophils (%) (Auto) 72.5 % (45.0-75.0) Lymphocytes (%) (Auto) 18.4 % (20.0-45.0) Monocytes (%) (Auto) 4.8 % (1.0-10.0) Eosinophils (%) (Auto) 3.0 % (0.0-3.0) Basophils (%) (Auto) 1.2 % (0.0-2.0) Sodium Level 129 MMOL/L (136-145) Potassium Level 3.7 MMOL/L (3.5-5.1) Chloride Level 93 MMOL/L (98-107) Carbon Dioxide Level 24 MMOL/L (21-32) Anion Gap 12 mmol/L (5-15) Blood Urea Nitrogen 35 mg/dL (7-18) Creatinine 1.6 MG/DL (0.55-1.30) Estimat Glomerular Filtration Rate 33.3 mL/min (>60) Glucose Level 608 MG/DL (74-106) Calcium Level 9.7 MG/DL (8.5-10.1) Magnesium Level 1.6 MG/DL (1.8-2.4) Total Bilirubin 0.4 MG/DL (0.2-1.0) Aspartate Amino Transf (AST/SGOT) 19 U/L (15-37) Alanine Aminotransferase (ALT/SGPT) 20 U/L (12-78) Alkaline Phosphatase 137 U/L (46-116) Troponin I 0.000 ng/mL (0.000-0.056) Total Protein 8.8 G/DL (6.4-8.2) Albumin 3.5 G/DL (3.4-5.0) Globulin 5.3 g/dL Albumin/Globulin Ratio 0.7 (1.0-2.7) Lipase 732 U/L (73-393) Acetone Level Negative (NEGATIVE) Arterial Blood pH 7.401 (7.350-7.450) Arterial Blood Partial Pressure CO2 37.9 mmHg (35.0-45.0) Arterial Blood Partial Pressure O2 85.4 mmHg (75.0-100.0) Arterial Blood HCO3 23.0 mmol/L (22.0-26.0) Arterial Blood Oxygen Saturation 96.1 % (95-100) Arterial Blood Base Excess -1.4 (-2-2) Chava Test Positive EKG Diagnostic Results Rate: normal - 72 Rhythm: NSR ST Segments: no acute changes Last Vital Signs Date Time Temp Pulse Resp B/P (MAP) Pulse Ox O2 Delivery O2 Flow Rate FiO2 08/17/20 14:51 98.6 80 18 135/90 (105) 96 Room Air Status: improved Disposition: SHORT-TERM HOSP Condition: Stable Conner Hyde MD Aug 17, 2020 15:04
[2020-08-17 15:17] LABS: BASOPHILS % (AUTO) 1.2 % (0.0-2.0); HEMATOCRIT 39.1 % (37.0-47.0); HEMOGLOBIN 13.2 G/DL (12.0-16.0); LYMPHOCYTES % (AUTO) 18.4 % (20.0-45.0); MEAN CORPUSCULAR VOLUME 81 FL (80-99); MONOCYTES % (AUTO) 4.8 % (1.0-10.0); NEUTROPHILS % (AUTO) 72.5 % (45.0-75.0); PLATELET COUNT 351 K/UL (150-450); RED BLOOD COUNT 4.85 M/UL (4.20-5.40); RED CELL DISTRIBUTION WIDTH 14.2 % (11.6-14.8); WHITE BLOOD COUNT 10.3 K/UL (4.8-10.8)
[2020-08-17 15:29] LABS: ALANINE AMINOTRANSFERASE 20 U/L (12-78); ALBUMIN 3.5 G/DL (3.4-5.0); ALBUMIN/GLOBULIN RATIO 0.7 (1.0-2.7); ALKALINE PHOSPHATASE 137 U/L (46-116); ANION GAP 12 mmol/L (5-15); ASPARTATE AMINO TRANSFERASE 19 U/L (15-37); BILIRUBIN,TOTAL 0.4 MG/DL (0.2-1.0); BLOOD UREA NITROGEN 35 mg/dL (7-18); CALCIUM 9.7 MG/DL (8.5-10.1); CARBON DIOXIDE 24 MMOL/L (21-32); CHLORIDE 93 MMOL/L (98-107); CREATININE 1.6 MG/DL (0.55-1.30); POTASSIUM 3.7 MMOL/L (3.5-5.1); SODIUM 129 MMOL/L (136-145)
[2020-08-17] MEDS ORDERED: Aspirin Baby 81mg ORAL ONE (15:30)
[2020-08-17] MEDS ORDERED: FERROUS SULFAT325 MG ORAL (16:12)
[2020-08-17 16:20] LABS: APPEARANCE,URINE CLEAR; BILIRUBIN, URINE NEGATIVE (NEGATIVE); COLOR,URINE PALE YELLOW; GLUCOSE, URINE (UA) 4+ (NEGATIVE); KETONES,URINE NEGATIVE (NEGATIVE); LEUKOCYTE ESTERASE ,URINE NEGATIVE (NEGATIVE); NITRITE,URINE NEGATIVE (NEGATIVE); PH,URINE 5 (4.5-8.0); PROTEIN,URINE 3+ (NEGATIVE); UROBILINOGEN,URINE NORMAL MG/DL (0.0-1.0)
[2020-08-17 19:24] VITALS: BP 135/90
== END 2020-08-17 19:26 | disposition short-term general hospital (02) ==
LOC: EDBD 14:55 → EMR 15:00
DX: E11.65 Type 2 diabetes mellitus with hyperglycemia (principal); Z91.14 Patient's other noncompliance with medication regimen; Z88.0 Allergy status to penicillin; G40.909 Epilepsy, unspecified, not intractable, without status epilepticus; Z95.1 Presence of aortocoronary bypass graft; Z86.73 Personal history of transient ischemic attack (TIA), and cerebral infarction without residual deficits; Z79.4 Long term (current) use of insulin; I10 Essential (primary) hypertension
CPT/HCPCS: 36415; 80053; 81003; 82009; 82803; 82962; 83690; 83735; 84484; 85025; 93005; 96361; 96374; J1815; J7030; U0002; Z7502; 99285

== ENCOUNTER 2020-12-05 15:23 | Emergency (ER) | payer OTHER ==
[~2020-12-05] VITALS: Ht 157.5 cm; Wt 91.6 kg
[~2020-12-05 15:23] MED LIST changes: +FERROUS SULFAT325 MG ORAL
--- NOTE | 2020-12-05 15:50 | NUR ---
ED Nurse Note: pt stated that her dr's office told her to come here and get wound care for her right greater toe wound. pt stated that she has had this since Sep. pt stated that she is a diabetic and it is painful. pt's wound has clean borders and edges, no drainage or pus noted. no foul odor. pt has been taking care of it herself at home. greater toe is edematous.
[2020-12-05 15:53] VITALS: BP 142/81
--- NOTE | 2020-12-05 16:26 | NUR ---
ED Nurse Note: provided dc'd lab work ordered to do wet to dry dressing to the right greater toe. pt tolerated procedure.
--- NOTE | 2020-12-05 16:34 | Emergency Room Report ---
History of Present Illness General Chief Complaint: Wound Recheck/Suture Removal Source: Patient Present Illness HPI 55-year-old female with history of type 2 diabetes currently taking Metformin and chronic right toe ulcer that has been ongoing since September here sent by primary doctor for wound care. Patient reports that she has been taking care of her ulcer at home, no pus drainage noted, appears to be closing. As for range of motion of the affected side, no bony tenderness noted. Denies tingling numbness. Denies fever and chills, chest pain shortness of breath. Is able to bear weight on the affected side. Has not taken medication for symptom relief. Has never been seen by client services specialist. Allergies: Coded Allergies: PENICILLIN G (Unverified Allergy, Unknown, 12/05/20) PENICILLINS (Verified Allergy, Unknown, 11/08/17) Uncoded Allergies: PENICILLIN (Allergy, Unknown, 08/17/20) COVID-19 Screening Contact w/high risk pt: No Experienced COVID-19 symptoms?: No COVID-19 Testing performed CENTRIFUGAL EXTRACTOR OPERATOR: No Patient History Past Medical History: see triage record Past Surgical History: none Pertinent Family History: none Now: No Immunizations: UTD Reviewed Nursing Documentation: PMH: Agreed; PSxH: Agreed Nursing Documentation-PMH Past Medical History: No History, Except For Hx Cardiac Problems: Yes - CABG 2006 Hx Hypertension: Yes Hx Diabetes: Yes Hx Cancer: Yes - leukemia Hx Cerebrovascular Accident: Yes - 20 YEARS AGO Hx Seizures: Yes - SEIZURE X1 2016 Review of Systems All Other Systems: negative except mentioned in HPI Physical Exam Vital Signs Date Time Temp Pulse Resp B/P (MAP) Pulse Ox O2 Delivery O2 Flow Rate FiO2 12/05/20 15:45 98.2 70 20 142/81 (101) 97 Room Air Sp02 EP Interpretation: reviewed, normal General Appearance: no apparent distress, alert, GCS 15, non-toxic Head: normocephalic, atraumatic Eyes: bilateral eye normal inspection, bilateral eye PERRL ENT: normal pharynx, no angioedema Neck: full range of motion, supple/symm/no masses Respiratory: normal breath sounds, no retraction, speaking full sentences Cardiovascular #1: no edema Cardiovascular #2: 2+ dorsalis pedis (R), 2+ dorsalis pedis (L) Gastrointestinal: soft Rectal: deferred Genitourinary: no CVA tenderness Musculoskeletal: back normal, other - Chronic toe ulcer appears to be healing Neurologic: alert, motor strength/tone normal, oriented x3, sensory intact, responsive, speech normal Psychiatric: judgement/insight normal, memory normal, mood/affect normal, no suicidal/homicidal ideation Skin: normal color Lymphatic: no adenopathy Medical Decision Making PA Attestation All my diagnosis and treatment plans were reviewed ad discussed with my supervising physician Dr. Lockhart Diagnostic Impression: Primary Impression: Chronic foot ulcer ER Course 55-year-old female with history of type 2 diabetes currently taking Metformin and chronic right toe ulcer that has been ongoing since September here sent by primary doctor for wound care. Patient reports that she has been taking care of her ulcer at home, no pus drainage noted, appears to be closing. As for range of motion of the affected side, no bony tenderness noted. Denies tingling numbness. Denies fever and chills, chest pain shortness of breath. Is able to bear weight on the affected side. Has not taken medication for symptom relief. Has never been seen by client services specialist. Ddx considered but are not limited to : Cellulitis, acute diabetic foot ulcer, chronic diabetic foot ulcer, osteomyelitis, superficial infection, abscess Vital signs: are WNL, pt. is afebrile H&PE are most consistent with: Chronic foot ulcer and non- gangrenous ORDERS: Foot x-ray, Keflex ED INTERVENTIONS: Wound cleaned and dressed DISCHARGE: At this time pt. is stable for d/c to home. Will provide printed patient care instructions, and any necessary prescriptions. Care plan and follow up instructions have been discussed with the patient prior to discharge. Advised patient to follow-up primary doctor for more wound care, at this time no blood work needed patient does not appear to be septic, has proper wound management at home and remained, no bony tenderness noted, and reports that has been healing. Advised return to the emergency room if worsening symptoms. X- ray did not show any signs of osteomyelitis. Other X-Ray Diagnostic Results Other X-Ray Diagnostic Results : X-Ray ordered: Right toe # of Views/Limited Vs Complete: 3 View Indication: Pain EP Interpretation: Yes PA Xray: Interpretation reviewed, by supervising MD, and agrees with findings. Interpretation: no dislocation, no soft tissue swelling, no fractures, other - No osteomyelitis noted Impression: No acute disease Electronically Signed by: Telma Quach PA-C Last Vital Signs Date Time Temp Pulse Resp B/P (MAP) Pulse Ox O2 Delivery O2 Flow Rate FiO2 12/05/20 15:53 98.2 20 142/81 97 Room Air 12/05/20 15:45 70 Disposition: HOME, SELF-CARE Condition: Stable Scripts Cephalexin* (KEFLEX*) 500 Mg Capsule 500 MG ORAL EVERY 6 HOURS for 7 Days, #28 CAP Prov: Telma Mendenhall 12/05/20 Referrals: [facility],REFERRING (PCP) Patient Instructions: Diabetes and Foot Care Additional Instructions: Take medication as directed, follow primary care provider for proper referral to wound care, if worsening symptoms return to the emergency room Telma Mendenhall Dec 05, 2020 16:34
[2020-12-05] MEDS ORDERED: CEPHALEXIN500 MG ORAL (16:35)
--- NOTE | 2020-12-05 16:42 | NUR ---
ER DISCHARGE NOTE: Patient is cleared to be discharged per ERMD, pt is aox4, on room air, with stable vital signs. pt was given dc and prescription instructions, pt was able to verbalize understanding. pt is able to ambulate with steady gait. pt took all belongings.
--- NOTE | 2020-12-05 22:00 | Diagnostic Imaging Report ---
Indication: Right big toe pain Technique: 3 views of the right great toe Comparison: none Findings: There is marked soft tissue swelling of the great toe. There is a large distal superficial ulcer. There is loss of the terminal tuft, although the margins of the existing bone are fairly sharp. No osseous erosions or unusual periosteal reaction. No acute fracture. There are vascular calcifications Impression: Large soft tissue ulcer. Evidence of loss of the terminal tuft of the distal phalanx. Uncertain as to whether this represents acute osteomyelitis, versus chronic changes, as it is fairly well marginated. Recommend MRI for better characterization.
== END 2020-12-05 16:43 | disposition home or self-care (01) ==
LOC: EMR 16:04
DX: L97.519 Non-pressure chronic ulcer of other part of right foot with unspecified severity (principal); E11.9 Type 2 diabetes mellitus without complications; Z79.84 Long term (current) use of oral hypoglycemic drugs; Z88.0 Allergy status to penicillin; I10 Essential (primary) hypertension; Z95.1 Presence of aortocoronary bypass graft; Z85.6 Personal history of leukemia; Z86.73 Personal history of transient ischemic attack (TIA), and cerebral infarction without residual deficits; G40.909 Epilepsy, unspecified, not intractable, without status epilepticus
CPT/HCPCS: 73660; Z7502; 99283